=== PATIENT | female | born 1945 | race Caucasian/White ===

== ENCOUNTER 2016-08-08 09:49 | Outpatient (CLI) | payer MEDICARE, OTHER | END 2016-08-08 09:50 | disposition home or self-care (01) | DX: R92.1 Mammographic calcification found on diagnostic imaging of breast (principal) ==

== ENCOUNTER 2016-09-13 08:57 | Outpatient (CLI) | payer MEDICARE, OTHER | END 2016-09-13 08:58 | disposition home or self-care (01) | DX: I10 Essential (primary) hypertension (principal); E78.5 Hyperlipidemia, unspecified ==

== ENCOUNTER 2016-11-20 10:32 | Outpatient (CLI) | payer MEDICARE, OTHER ==
--- NOTE | 2016-11-20 12:51 | XRAY Report ---
THREE VIEW LEFT FINGER: 11/20/2016 CLINICAL INDICATION: Myxoid cyst. FINDINGS: AP, lateral, and oblique views of the left middle finger demonstrate no evidence of fractu re or dislocation. Mild osteoarthritic changes are present. No abnormal soft tissue calcification or ossification is appreciated. IMPRESSION: MILD OSTEOARTHRITIS. NO ABNORMAL SOFT TISSUE CALCIFICATION OR OSSIFICATION. JOB #: [id number] EXT JOB #:[id number]
== END 2016-11-20 10:33 | disposition home or self-care (01) ==
LOC: DI 10:32
PROVIDERS: ATTEND Physician Assistant Medical
DX: M19.042 Primary osteoarthritis, left hand (principal)
CPT/HCPCS: 73140

== ENCOUNTER 2017-02-23 10:30 | Outpatient (CLI) | payer MEDICARE, OTHER | END 2017-02-23 10:31 | disposition home or self-care (01) | LOC: LAB.WCP 10:30 | PROVIDERS: ATTEND Family Medicine | DX: R30.0 Dysuria (principal); G35 Multiple sclerosis | CPT/HCPCS: 87086 ==

== ENCOUNTER 2017-03-05 12:40 | Outpatient (CLI) | payer MEDICARE, OTHER ==
--- NOTE | 2017-03-06 12:54 | Mammography Report ---
DIGITAL UNILATERAL RIGHT MAMMOGRAM: 03/05/2017 HISTORY: Followup probably benign microcalcifications. Personal history of breast cancer status pos t left mastectomy. COMPARISON: 08/08/2016, 02/08/2016, 09/02/2015, 09/14/2014, and 04/26/2013. TECHNIQUE: Unilateral right CC, MLO, true lateral, and magnification views are obtained. FINDINGS: There are scattered fibroglandular densities. There is persistent stability of the right upper outer quadrant calcifications. No new calcifications, dominant mass, architectural distortion, or skin thickening is seen. IMPRESSION: PROBABLY BENIGN. BIRADS CATEGORY 3. SUGGEST FOLLOWUP RIGHT BREAST MAMMOGRAPHY IN [facility] TO INCLUDE MAGNIFICATION VIEWS. STANDARD QUALIFYING STATEMENTS 1. This examination was reviewed with the aid of Computer-Aided Detection (CAD). 2. A negative or benign imaging report should not delay biopsy if clinically suspicious findings are present. Consider surgical consultation if warranted. More than 5% of cancers are not identified by i maging. 3. Dense breasts may obscure an underlying neoplasm. JOB #: [id number] EXT JOB #:[id number]
== END 2017-03-05 12:41 | disposition home or self-care (01) ==
LOC: DI 12:40
PROVIDERS: ATTEND Physician Assistant Medical
DX: R92.8 Other abnormal and inconclusive findings on diagnostic imaging of breast (principal); Z08 Encounter for follow-up examination after completed treatment for malignant neoplasm; Z85.3 Personal history of malignant neoplasm of breast

== ENCOUNTER 2017-08-29 19:53 | Outpatient (CLI) | payer MEDICARE, OTHER ==
--- NOTE | 2017-08-30 10:33 | Ultrasound Report ---
PELVIS ULTRASOUND: 08/29/2017. COMPARISON: No comparison. INDICATION: Abnormal vaginal bleeding. TECHNIQUE: Sonographic evaluation of the pelvis was performed using transabdominal technique. FINDINGS: Uterus: 7.6 x 7.7 x 5.7 cm. Volume 174 mL. The uterus is very heterogeneous and difficult to evaluate. There appear to be multiple fibroids and calcifications scattered throughout the uterus. The largest fibroid is right fundal and measures 4.6 cm. Endometrial stripe appears to measure 7 mm, but is difficult to evaluate given the heterogeneous appearance of the uterus. No free fluid. The ovaries are not well evaluated. The right ovary measures 1.4 x 1.1 x 1.1 cm. The left ovary measures 1.7 x 1.4 cm. No adnexal masses. IMPRESSION: 1. HETEROGENEOUS LEIOMYOMATOUS UTERUS IS DIFFICULT TO EVALUATE. 2. THE ENDOMETRIAL COMPLEX MEASURES APPROXIMATELY 7 MM, BUT IS ALSO POORLY EVALUATED. IN THIS SETTING PELVIS MRI MAY HAVE A ROLE TO PLAY. OTHERWISE MAY CONSIDER AGRICULTURE LABORER CONSULTATION FOR CONSIDERATION OF COLPOSCOPY. TD: 08/30/2017 10:33 TERRY
== END 2017-08-29 19:54 | disposition home or self-care (01) ==
LOC: DI 19:53
PROVIDERS: ATTEND Family Medicine
DX: D25.9 Leiomyoma of uterus, unspecified (principal)
CPT/HCPCS: 76856

== ENCOUNTER 2017-09-21 09:51 | Outpatient (CLI) | payer MEDICARE, OTHER ==
--- NOTE | 2017-09-21 14:54 | MRI Report ---
EXAM: MR PELVIS CONTRAST (MR FEMALE PELVIS) EXAM DATE: 09/21/2017 11:13 AM. CLINICAL HISTORY: Leiomyoma of uterus. COMPARISON: None. TECHNIQUE: Multiplanar breath-hold T1, T2 and DWI sequences obtained through the pelvis on an MR scan ner. Images obtained without contrast. FINDINGS: Reproductive Organs: Uterus: The uterus is retroflexed and measures 7.8 x 5.6 x 4.3 cm with volume 99 cc. The endometrial thickness is distorted, measures 6.5 mm. Multiple myomas are present. Largest in the fundus is 5.4 x 4.3 cm transversely extending for 3.6 cm cephalocaudal extent. Right Ovary: The right ovary measures 1.9 x 2.2 x 1.5 cm with volume 3.3 cc. The right ovary appears normal. Left Ovary: The left ovary measures 1.4 x 1.0 x 1.5 cm with volume 1.1 cc. The left ovary appears nor mal. Bowel: The visualized portions of the small bowel, colon, and rectum appear normal. Bladder: The urinary bladder appears normal. Other: Moderate fatty atrophy of the musculature of the pelvis. IMPRESSION: 1. Retroflexed uterus shows numerous myomas, largest in the fundus. There is some distortion of the o therwise normal-appearing endometrial lining. Left and right ovaries are unremarkable. 2. No adenopathy or pelvic masses. [facility] Referring Provider Line: [phone] SITE ID: [id number]
== END 2017-09-21 09:52 | disposition home or self-care (01) ==
LOC: DI 09:51
PROVIDERS: ATTEND Obstetrics & Gynecology
DX: D25.9 Leiomyoma of uterus, unspecified (principal)
CPT/HCPCS: 72195

== ENCOUNTER 2017-10-01 13:17 | Outpatient (CLI) | payer MEDICARE, OTHER ==
--- NOTE | 2017-10-01 13:56 | Mammography Report ---
DIGITAL DIAGNOSTIC RIGHT MAMMOGRAM: 10/01/2017 CLINICAL INDICATION: Followup calcifications. TECHNIQUE: Right CC, MLO, true lateral, spot magnification views. COMPARISON: 03/05/2017, 08/08/2016, 02/08/2016, 09/02/2015, 09/14/2014, 04/26/2013, 03/18/2012, 02/28/2012, 08/05/2010. FINDINGS: The right breast again demonstrates scattered fibroglandular densities. The calcifications in question are stable on spot magnification views. Other coarse, typically benign calcifications are present. No suspicious masses, clustered microcalcifications, or regions of architectural distortion are identified. IMPRESSION: PROBABLE BENIGN CALCIFICATIONS. RECOMMENDATION: DIAGNOSTIC RIGHT MAMMOGRAM IN 6 MONTHS, TO ASSURE STABILITY. BIRADS CATEGORY 3-PROBABLE BENIGN FINDINGS. STANDARD QUALIFYING STATEMENTS: 1. This examination was reviewed with the aid of Computer-Aided Detection (CAD). 2. A negative or benign imaging report should not delay biopsy if clinically suspicious findings are present. Consider surgical consultation if warranted. More than 5% of cancers are not identified by imaging. 3. Dense breasts may obscure an underlying neoplasm. TD: 10/01/2017 13:55
== END 2017-10-01 13:18 | disposition home or self-care (01) ==
LOC: DI 13:17
PROVIDERS: ATTEND Physician Assistant Medical
DX: R92.1 Mammographic calcification found on diagnostic imaging of breast (principal)

== ENCOUNTER 2017-11-20 11:45 | Outpatient (CLI) | payer MEDICARE, OTHER ==
[2017-11-20 12:09] LABS: BILIRUBIN,URINE NEGATIVE (NEGATIVE); GLUCOSE, URINE (UA) NEGATIVE (NEGATIVE); KETONES,URINE (UA) NEGATIVE (NEGATIVE); LEUKOCYTE ESTERASE, URINE NEGATIVE (NEGATIVE); NITRITE,URINE NEGATIVE (NEGATIVE); OCCULT BLOOD,URINE NEGATIVE (NEGATIVE); PH,URINE 6.5 PH (5.0-7.5); PROTEIN,URINE NEGATIVE (NEGATIVE); UROBILINOGEN,URINE 0.2 (NORMAL) E.U./dL (NORMAL)
[2017-11-20 12:13] LABS: CLARITY,URINE CLEAR (CLEAR)
[2017-11-20 12:21] LABS: BASOPHILS % (AUTO) 0.7 %; EOSINOPHILS # (AUTO) 0.3 10^3/uL (0.0-0.7); EOSINOPHILS % (AUTO) 4.7 %; HGB - HEMOGLOBIN 13.2 g/dL (12.0-16.0); LYMPHOCYTES # (AUTO) 1.7 10^3/uL (1.5-3.5); LYMPHOCYTES % (AUTO) 27.8 %; MEAN CORPUSCULAR HGB CONC 34.1 g/dL (32.0-36.0); MEAN PLATELET VOLUME 6.8 fL (7.9-10.8); MONOCYTES # (AUTO) 0.4 10^3/uL (0.0-1.0); NEUTROPHILS # (AUTO) 3.7 10^3/uL (1.5-6.6); NEUTROPHILS % (AUTO) 59.8 %; PLT - PLATELET COUNT 240 10^3/uL (130-450); RED BLOOD COUNT 4.25 10^6/uL (4.20-5.40); RED CELL DISTRIBUTION WIDTH 12.9 % (12.0-15.0); WHITE BLOOD COUNT 6.3 x10^3/uL (4.8-10.8)
== END 2017-11-20 11:46 | disposition home or self-care (01) ==
LOC: LAB 11:45
PROVIDERS: ATTEND Obstetrics & Gynecology
DX: Z01.812 Encounter for preprocedural laboratory examination (principal); D25.9 Leiomyoma of uterus, unspecified; Z79.899 Other long term (current) drug therapy; N95.0 Postmenopausal bleeding
CPT/HCPCS: 36415; 81003; 85025; 86850; 86900; 86901

== ENCOUNTER 2017-11-21 06:13 | Day surgery (SDC) | payer MEDICARE, OTHER ==
[2017-11-21] MEDS ORDERED: LACTATED RINGERS 1,000 ML IV ONE (06:46)
[2017-11-21] MEDS ORDERED: SCOPOLAMINE PATCH TOP ONE (07:33)
[2017-11-21] MEDS ORDERED: ESTROGENS, CONJUGATED CREAM 30 GM TUBE ONE (08:37)
[2017-11-21] MEDS ORDERED: fentaNYL 100 MCG/2 ML VIAL IVP ONE (08:44)
[2017-11-21] MEDS ORDERED: ONDANSETRON 4 MG/2 ML VIAL IVP ONE (08:44)
[2017-11-21] MEDS ORDERED: DEXAMETHASONE 4 MG/ML VIAL IVP ONE (08:44)
[2017-11-21] MEDS ORDERED: PROPOFOL 200 MG/20 ML VIAL IVP ONE (08:44)
--- NOTE | 2017-11-21 08:44 | PREOP HISTORY & PHYSICAL ---
DATE OF SERVICE: 11/21/2017 Physician: Juice Alamo MD PREOPERATIVE H&P ON 11/20/2017 FOR PROPOSED DATE 11/21/2017 DIAGNOSES 1. Thickened endometrium. 2. Postmenopausal bleeding. 3. Nondiagnostic endometrial biopsy (office). 4. Prior tamoxifen patient. 5. Multiple sclerosis. 6. History of right leg fracture and plate installed. INTENDED PROCEDURE: Diagnostic hysteroscopy; possible MyoSure polypectomy or myomectomy; possible D and C. HISTORY OF PRESENT ILLNESS: Patient is a 72-year-old , 4, para 2-0-2-2 woman who has had a history of postmenopausal bleeding for 6 months and is known to have endometrial thickening with possible submucosal fibroids or polyps. Her endometrial biopsy produced only a scant sample which was benign, but nondiagnostic. She is a breast cancer (2007) survivor and received tamoxifen post surgery. PAST MEDICAL HISTORY 1. Patient has multiple sclerosis. 2. Fracture of the right leg with orthopedic surgery and placement of plate. 3. The patient has previously been diagnosed with a heart murmur. 4. Hypertension with antihypertensive. 5. Gastric reflux disease. 6. Cognitive and memory impairment. 7. Urolithiasis. 8. Overactive bladder. PAST SURGICAL HISTORY 1. Fusion of L2, 3, 4, and 5 in 2013. 2. Breast reduction in 2004. 3. Cholecystectomy in 2015. 4. Stone removal in 2009. 5. Shoulder surgery in 1987. 6. Left mastectomy in 2004. ALLERGIES: TORADOL RESULTS IN HALLUCINATIONS. MEDICATIONS 1. Atenolol 100 mg daily. 2. Mini dose aspirin 81 mg daily, last dose Sunday. 3. Hydrochlorothiazide 25 mg daily. 4. Multiple vitamin and iron daily. 5. Glucosamine chondroitin 1500 mg daily. 6. Sertraline 50 mg daily. 7. Nortriptyline 100 mg at bedtime. 8. Atorvastatin 20 mg at bedtime. 9. Lyrica 50 mg at bedtime. 10. Copaxone 40 mg injection 3 times a week. 11. VESIcare p.r.n. FAMILY HISTORY: CAD, father. Diabetes, paternal grandfather. SOCIAL HISTORY: , has never smoked, does not drink or take recreational drugs. No specific diet. Her is her primary vest busheler. REVIEW OF SYSTEMS CONSTITUTIONAL: No fever, recent illness. HEENT: Negative. CARDIOVASCULAR: Murmur reported, but no chest pain, palpitations, or irregular heartbeat. RESPIRATORY: Negative. GASTROINTESTINAL: Negative. GENITOURINARY: Negative other than postmenopausal bleeding and overactive bladder. MUSCULOSKELETAL: Muscle weakness secondary to MS. DERMATOLOGIC: Negative. BREASTS: No palpable lump on self-exam. NEUROLOGIC: Effects of MS. PSYCHOLOGIC: Cognitive defect. Pleasant mood otherwise. PHYSICAL EXAMINATION GENERAL: Well groomed, pleasant, accompanied by as a reliable historian. VITAL SIGNS: Posted. HEENT: Supple neck. No thyromegaly. LUNGS: Clear to auscultation. CARDIAC: Grade 2/6 systolic ejection murmur without diastolic component. BREASTS: Deferred. ABDOMEN: Truncal obesity. No hepatosplenomegaly. No tenderness detected. GENITOURINARY: From prior exam, no vulvar lesions. VAGINA: Cystorectocele. CERVIX: Patulous. UTERUS: Mobile, normal size. ADNEXA: No masses. MUSCULOSKELETAL: Weakness. No calf tenderness. NEUROLOGIC: MS-type changes. ASSESSMENT: Patient has endometrial thickening and history of postmenopausal bleeding without reliable tissue diagnosis at this time. Bleeding could be due to hyperplasia, malignancy, or fibroid/polyp. Diagnosis is required and a hysteroscopy provides the most reliable means. The risks and benefits of hysteroscopy versus other management strategies were discussed. ACOG handouts were reviewed. PLAN: Patient consents to hysteroscopy with MyoSure which may include MyoSure removal of polyps or myoma. D and C may be performed. Informed consent paperwork has been completed. Preoperative labs pending. TD: 11/20/2017 11:22
--- NOTE | 2017-11-21 08:52 | OPERATIVE REPORT ---
Operative Report - General Procedure Date: 11/21/17 Planned Procedure: Hysteroscopy with Myosure possible D&C Pre-Op Diagnosis: Postmenopausal bleeding, thickened endometrium Procedure Performed: Hysteroscopy with Myosure Polypectomy Post Op Diagnosis: Multiple polyps - Procedure Note Primary Surgeon: Juice Alamo MD Anesthesia Technique: General ET tube Pathology: Polyps IV Fluids (mL): 950 (Fluid deficit) Estimated Blood Loss (mL): 100 Urine Output (mL): 0 (Patient straight cath prior to procedure) Complications: None
[2017-11-21 10:15] VITALS: BP 127/66
--- NOTE | 2017-11-21 14:00 | OPERATIVE REPORT ---
DATE OF SERVICE: 11/21/2017 Physician: Juice Alamo MD PREOPERATIVE DIAGNOSES: Postmenopausal bleeding; thickened endometrium on ultrasound (11 mm). POSTOPERATIVE DIAGNOSES: Multiple intrauterine benign-appearing polyp; no evidence of malignancy or hyperplasia. PROCEDURES PERFORMED: Hysteroscopy; excision of multiple polyps with MyoSure. SURGEON: Juice Alamo M.D., FACOG ANESTHESIOLOGIST: Smith Hess, Certified Nurse [employer] Registered Nurse ANESTHESIA: General, ET tube placed. PATHOLOGY: Polypoid growths sent. FLUIDS: Fluid deficit at 950. ESTIMATED BLOOD LOSS: 100 mL URINE OUTPUT: Not known. The patient straight catheterized prior to procedure. DRAINS: None. COMPLICATIONS: None. FINDINGS: The uterus is retroverted and slightly bulky indicative of intramural fibroids. There were no palpable adnexal masses. Hysteroscopy reveals multiple polypoid growths, all appearing benign. There was a patch of speckled myometrium that was most likely atrophic, which was also sampled. Endometrium overall appeared atrophic. There was one small ramakrishna left in the dome of the uterus that was from Hegar probe cervical dilation. TECHNIQUE: The patient was brought to the operating room and placed in supine position for administration of general anesthesia. She was uneventfully induced and intubated. She was moved in the dorsal lithotomy position on [facility] stirrups. She was prepped and draped in a customary sterile fashion. She was straight catheterized prior to the procedure. Exam under anesthesia was done. A timeout briefing was done per protocol. Clamshell speculum was inserted and the cervix visualized. A single-tooth tenaculum was placed on the anterior cervical length. The cervix was then gently dilated with serial application of Hegar probes to size 6. A hysteroscope was primed and camera white balanced. The hysteroscope then was introduced through the endocervical canal and into the uterine cavity. There were multiple polyps noted and photographed. Next, MyoSure was introduced into the endometrial cavity, and in a systematic fashion, the polyps were removed. The uterus was depressurized and there were some ooze noted. The uterus was then packed with iodoform gauze. We observed the gauze packing for 3 minutes to ensure that it was effective. Anesthesia was then reversed, the patient was awakened, and taken to the recovery room. She was given complete postop instructions and warning and callback instructions as well. DISCHARGE MEDICATIONS: Motrin 600 q. 6 hours. The patient will return to clinic for followup on pathology in 2 weeks. TD: 11/21/2017 09:11 TERRY
== END 2017-11-21 06:14 | disposition home or self-care (01) ==
LOC: SDS 06:13
PROVIDERS: ATTEND Obstetrics & Gynecology
PROC: 0UB98ZX Excision of Uterus, Via Natural or Artificial Opening Endoscopic, Diagnostic (ICD-10-PCS; principal; 2017-11-21 07:30)
DX: N84.0 Polyp of corpus uteri (principal); N95.0 Postmenopausal bleeding; I10 Essential (primary) hypertension; Z85.3 Personal history of malignant neoplasm of breast; G35 Multiple sclerosis; Z79.82 Long term (current) use of aspirin; K21.9 Gastro-esophageal reflux disease without esophagitis
CPT/HCPCS: 58558; J3490; J7120; 88305

== ENCOUNTER 2017-12-25 14:30 | Outpatient (CLI) | payer MEDICARE, OTHER ==
[2017-12-25 14:46] LABS: BASOPHILS % (AUTO) 0.3 %; EOSINOPHILS # (AUTO) 0.3 10^3/uL (0.0-0.7); EOSINOPHILS % (AUTO) 2.9 %; HGB - HEMOGLOBIN 13.3 g/dL (12.0-16.0); LYMPHOCYTES # (AUTO) 1.8 10^3/uL (1.5-3.5); LYMPHOCYTES % (AUTO) 19.3 %; MEAN CORPUSCULAR HEMOGLOBIN 31.3 pg (27.0-31.0); MEAN CORPUSCULAR HGB CONC 33.3 g/dL (32.0-36.0); MEAN CORPUSCULAR VOLUME 94.1 fL (81.0-99.0); MEAN PLATELET VOLUME 6.7 fL (7.9-10.8); MONOCYTES # (AUTO) 0.6 10^3/uL (0.0-1.0); MONOCYTES % (AUTO) 6.2 %; NEUTROPHILS # (AUTO) 6.6 10^3/uL (1.5-6.6); NEUTROPHILS % (AUTO) 71.3 %; PLT - PLATELET COUNT 248 10^3/uL (130-450); RED BLOOD COUNT 4.24 10^6/uL (4.20-5.40); RED CELL DISTRIBUTION WIDTH 13.1 % (12.0-15.0); WHITE BLOOD COUNT 9.2 x10^3/uL (4.8-10.8)
== END 2017-12-25 14:31 | disposition home or self-care (01) ==
LOC: LAB 14:30
PROVIDERS: ATTEND Obstetrics & Gynecology
DX: N93.8 Other specified abnormal uterine and vaginal bleeding (principal)
CPT/HCPCS: 36415; 85025

== ENCOUNTER 2018-04-08 08:00 | Outpatient (CLI) | payer MEDICARE, OTHER ==
[2018-04-09 15:42] LABS: BILIRUBIN,URINE NEGATIVE (NEGATIVE); GLUCOSE, URINE (UA) NEGATIVE (NEGATIVE); KETONES,URINE (UA) NEGATIVE (NEGATIVE); LEUKOCYTE ESTERASE, URINE NEGATIVE (NEGATIVE); NITRITE,URINE NEGATIVE (NEGATIVE); OCCULT BLOOD,URINE NEGATIVE (NEGATIVE); PH,URINE 5.5 PH (5.0-7.5); PROTEIN,URINE NEGATIVE (NEGATIVE); UROBILINOGEN,URINE 0.2 (NORMAL) E.U./dL (NORMAL)
[2018-04-09 15:56] LABS: BACTERIA,URINE None Seen /HPF (None Seen); CLARITY,URINE CLEAR (CLEAR); RBC,URINE None Seen /HPF (0-5); SQUAMOUS EPITHELIAL CELL,UR RARE Squamous (<= Few)
== END 2018-04-08 23:59 ==
LOC: LAB.R 08:00
PROVIDERS: ATTEND Obstetrics & Gynecology
DX: N39.3 Stress incontinence (female) (male) (principal)
CPT/HCPCS: 81001; 87086

== ENCOUNTER 2018-04-09 09:54 | Outpatient (CLI) | payer MEDICARE, OTHER ==
--- NOTE | 2018-04-09 11:56 | Mammography Report ---
Reason: ABNORMAL MAMMO, RIGHT BREAST Procedure Date: 04/09/2018 Accession Number: [id number] / [id number] Procedure: ANA - Diagnostic Dig RT CPT Code: FULL RESULT: EXAM: Diagnostic Dig RT DATE: 04/09/2018 10:55 AM CLINICAL HISTORY: Follow-up microcalcifications. TECHNIQUE: Magnification and true lateral views right breast COMPARISON: 10/01/2017, 03/05/2017, 08/08/2016, 02/08/2016, 09/02/2015, 09/14/2014, and 04/26/2013 FINDINGS: Scattered fibroglandular densities are present in the right breast. Stable anterior calcifications are again seen. IMPRESSION: Benign findings RECOMMENDATION: Return to routine screening in 6 months. BIRADS CATEGORY 2: Benign findings STANDARD QUALIFYING STATEMENTS: 1. This examination was reviewed with the aid of Computer-Aided Detection (CAD). 2. A negative or benign imaging report should not delay biopsy if clinically suspicious findings are present. Consider surgical consultation if warrented. More than 5% of cancers are not identified by imaging. 3. Dense breasts may obscure an underlying neoplasm.
== END 2018-04-09 09:55 | disposition home or self-care (01) ==
LOC: DI 09:54
PROVIDERS: ATTEND Family Medicine
DX: R92.8 Other abnormal and inconclusive findings on diagnostic imaging of breast (principal)

== ENCOUNTER 2018-05-16 12:07 | Outpatient (CLI) | payer MEDICARE, OTHER ==
[2018-05-16] MEDS ORDERED: GADOBUTROL 10 MMOL/10 ML VIAL ONE (12:14)
[2018-05-16] MEDS ORDERED: GADOBUTROL 10 MMOL/10 ML VIAL IVP ONE (12:51)
--- NOTE | 2018-05-16 15:36 | MRI Report ---
Reason: MULTIPLE SCLEROSIS Procedure Date: 05/16/2018 Accession Number: [id number] / [id number] Procedure: MRI - Brain W/WO CPT Code: FULL RESULT: EXAM: MRI BRAIN WITHOUT AND WITH CONTRAST EXAM DATE: 05/16/2018 01:23 PM. CLINICAL HISTORY: MULTIPLE SCLEROSIS. COMPARISON: BRAIN 11/19/2007 8:05 AM. TECHNIQUE: BRAIN: Multiplanar, multisequence MRI of the brain was performed without and with intravenous contrast using a 3T MR scanner. IV Contrast: 8.8 cc Gadavist FINDINGS: BRAIN: Parenchyma: Multiple, semi-confluent foci of FLAIR hyperintensity are again seen within periventricular, deep, subcortical and juxtacortical white matter, many with corresponding T1 hypointensity , compatible with demyelinating plaques. Compared to prior study from 11/19/2007, no convincing evidence of new lesions given slight differences in technique and angulation. No abnormal enhancement to suggest active inflammation/demyelination. No evidence of restricted diffusion to suggest acute infarct. Pituitary: Unremarkable. Ventricles and Extra-axial Spaces: Ventricles are symmetric and normal in size. Extra-axial spaces are unremarkable. Orbits and Sinuses: Orbits are unremarkable. Paranasal sinuses and mastoid air cells are clear. Major Vascular Flow Voids: Intact. Dural Venous Sinuses and Major Central Veins: Patent on post-contrast images. IMPRESSION: 1. Multiple, semi-confluent foci of FLAIR hyperintensity are again seen within periventricular, deep, subcortical and juxtacortical white matter, many with corresponding T1 hypointensity , compatible with demyelinating plaques. Compared to prior study from 11/19/2007, no convincing evidence of new lesions given slight differences in technique and angulation. No abnormal enhancement to suggest active inflammation/demyelination. 2. Qualitatively normal brain volume. [facility]
== END 2018-05-16 12:08 | disposition home or self-care (01) ==
LOC: DI 12:07
PROVIDERS: ATTEND Psychiatry & Neurology Neurology
DX: G35 Multiple sclerosis (principal)
CPT/HCPCS: 70553; A9585

== ENCOUNTER 2018-07-16 08:15 | Outpatient (CLI) | payer MEDICARE, OTHER ==
[2018-07-16 09:23] LABS: BASOPHILS % (AUTO) 0.4 %; EOSINOPHILS # (AUTO) 0.1 10^3/uL (0.0-0.7); HGB - HEMOGLOBIN 13.3 g/dL (12.0-16.0); LYMPHOCYTES # (AUTO) 1.8 10^3/uL (1.5-3.5); LYMPHOCYTES % (AUTO) 30.6 %; MEAN CORPUSCULAR HEMOGLOBIN 31.5 pg (27.0-31.0); MEAN CORPUSCULAR HGB CONC 34.3 g/dL (32.0-36.0); MEAN CORPUSCULAR VOLUME 91.8 fL (81.0-99.0); MONOCYTES # (AUTO) 0.4 10^3/uL (0.0-1.0); MONOCYTES % (AUTO) 6.8 %; NEUTROPHILS # (AUTO) 3.6 10^3/uL (1.5-6.6); NEUTROPHILS % (AUTO) 60.2 %; PLT - PLATELET COUNT 235 10^3/uL (130-450); RED BLOOD COUNT 4.23 10^6/uL (4.20-5.40); RED CELL DISTRIBUTION WIDTH 12.7 % (12.0-15.0)
[2018-07-16 09:46] LABS: ALBUMIN 4.1 g/dL (3.2-5.5); ALBUMIN/GLOBULIN RATIO 1.4 (1.0-2.2); ALKALINE PHOSPHATASE 87 IU/L (42-121); ALT ALANINE AMINOTRANSFERASE 13 IU/L (10-60); AST ASPARTATE AMINOTRANSFERASE 21 IU/L (10-42); BILIRUBIN,TOTAL 0.4 mg/dL (0.2-1.0); BUN - BLOOD UREA NITROGEN 16 mg/dL (6-20); CARBON DIOXIDE - CO2 27 mmol/L (21-32); CHLORIDE 105 mmol/L (101-111); CHOL/HDL RATIO 2.5 (<4.4); CHOLESTEROL 170 mg/dL; CREATININE 0.8 mg/dL (0.4-1.0); GFR - MDRD 70 (>89); GLUCOSE 110 mg/dL (70-100); HDL CHOLESTEROL 68 mg/dL; LDL CHOLESTEROL,CALCULATED 83 mg/dL; LDL/HDL RATIO 1.2 (<4.4); SODIUM 140 mmol/L (135-145); TOTAL PROTEIN 7.1 g/dL (6.7-8.2); VLDL CHOLESTEROL 19 mg/dL
== END 2018-07-16 08:16 | disposition home or self-care (01) ==
LOC: LAB 08:15
PROVIDERS: ATTEND Obstetrics & Gynecology
DX: N93.9 Abnormal uterine and vaginal bleeding, unspecified (principal); E78.5 Hyperlipidemia, unspecified; I10 Essential (primary) hypertension; G31.84 Mild cognitive impairment of uncertain or unknown etiology
CPT/HCPCS: 36415; 80053; 80061; 83721; 84443; 85025

== ENCOUNTER 2018-07-19 14:59 | Outpatient (CLI) | payer MEDICARE, OTHER ==
--- NOTE | 2018-07-20 01:00 | Ultrasound Report ---
Reason: ABNORMAL VAGINAL BLEEDING Procedure Date: 07/19/2018 Accession Number: [id number] / [id number] Procedure: US - Pelvic w/Transvaginal CPT Code: FULL RESULT: EXAM: PELVIC ULTRASOUND EXAM DATE: 07/19/2018 03:30 PM. CLINICAL HISTORY: ABNORMAL VAGINAL BLEEDING. COMPARISON: PELVIS GENERAL (NO TV/NO DOP) 08/29/2017 9:28 PM. TECHNIQUE: Realtime transabdominal pelvic scan performed to identify the uterus and adnexa and as an overview of other pelvic structures, followed by transvaginal scan to provide greater detail of the uterus and adnexa, with static image documentation. FINDINGS: Uterus: 9.8 x 6.3 x 4.1 cm, volume 132 cc. Retroverted position. Diffusely heterogeneous echotexture of the myometrium. Masses: Leiomyomas, in the body measuring 4.9 x 5.3 x 3.7, and in the lower uterine segment measuring 2.2 x 2.1 x 1.8. Endometrium: 3 mm. Normal. Cervix: Unremarkable. Right Ovary: 2.0 x 1.4 x 1.3 cm, volume 2 cc. 6 mm cyst. Left Ovary: 1.7 x 1.2 x 1.1 cm, volume 1 cc. Normal echotexture and blood flow. Free Fluid: None. Other: None. IMPRESSION: Diffusely leiomyomatous uterus. No evidence of endometrial hyperplasia. 6 mm right ovarian cyst. [facility]
== END 2018-07-19 15:00 | disposition home or self-care (01) ==
LOC: DI 14:59
PROVIDERS: ATTEND Obstetrics & Gynecology
DX: D25.9 Leiomyoma of uterus, unspecified (principal); N83.201 Unspecified ovarian cyst, right side
CPT/HCPCS: 76830; 76856

== ENCOUNTER 2018-08-02 11:07 | Outpatient (CLI) | payer MEDICARE, OTHER ==
--- NOTE | 2018-08-02 12:23 | XRAY Report ---
Reason: KNEE PX.BILATERAL/ANKLE PX LEFT Procedure Date: 08/02/2018 Accession Number: [id number] / [id number] Procedure: WCP - Ankle 3 View LT CPT Code: FULL RESULT: EXAM: LEFT ANKLE RADIOGRAPHY EXAM DATE: 08/02/2018 11:35 AM. CLINICAL HISTORY: KNEE PX. ANKLE PX LEFT. COMPARISON: 03/18/2014, 06/09/2013 and 04/26/2013 TECHNIQUE: 3 views. FINDINGS: Bones: Status post ORIF distal left fibula and medial malleolus. No evidence of hardware failure or loosening. Osseous bridging between the distal fibula and tibia similar to previous. Joints: No effusion. No subluxations. The ankle mortise is normally aligned. Soft Tissues: No soft tissue swelling. IMPRESSION: Stable postoperative left ankle compared with prior studies. No superimposed acute findings. [facility]
--- NOTE | 2018-08-03 10:44 | XRAY Report ---
Reason: KNEE PX.BILATERAL/ANKLE PX LEFT Procedure Date: 08/02/2018 Accession Number: [id number] / [id number] Procedure: WCP - Knee 3 View BILAT CPT Code: FULL RESULT: EXAM: BILATERAL KNEE RADIOGRAPHY EXAM DATE: 08/02/2018 11:35 AM. CLINICAL HISTORY: Bilateral knee pain. COMPARISON: None. TECHNIQUE: 3 views each knee. FINDINGS: Right: Bones: Normal. No fractures or bone lesions. Joints: No subluxation or dislocation. There is a trace knee joint effusion. There is mild narrowing of the medial and patellofemoral compartment spaces. There is mild tricompartmental osteophyte formation. Soft Tissues: Normal. No soft tissue swelling. Left: Bones: Normal. No fractures or bone lesions. Joints: No subluxation or dislocation. There is a trace knee joint effusion. There is mild joint space narrowing at the medial compartment, lateral compartment and patellofemoral compartment. There is moderate marginal osteophyte formation at the lateral compartment and mild marginal osteophyte formation at the medial and patellofemoral compartments. Soft Tissues: Normal. No soft tissue swelling. IMPRESSION: 1. No acute osseous abnormality of the bilateral knees. 2. Trace bilateral knee joint effusions. 3. 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 Right: Kellgren Lso Grade 2. Left: Kellgren Los Grade 2. Kellgren and Los classification of osteoarthritis: Grade 0: no radiographic features of osteoarthritis are present Grade 1: doubtful joint space narrowing (JSN) and possible osteophytic lipping Grade 2: definite osteophytes and possible JSN on anteroposterior weight-bearing radiograph Grade 3: multiple osteophytes, definite JSN, sclerosis, possible bony deformity Grade 4: large osteophytes, marked JSN, severe sclerosis and definite bony deformity [facility]
== END 2018-08-02 11:08 | disposition home or self-care (01) ==
LOC: DI.WCP 11:07
PROVIDERS: ATTEND Family Medicine
DX: M25.462 Effusion, left knee (principal); M25.461 Effusion, right knee; M17.0 Bilateral primary osteoarthritis of knee; M25.572 Pain in left ankle and joints of left foot

== ENCOUNTER 2018-08-19 13:01 | Outpatient (CLI) | payer MEDICARE, OTHER ==
--- NOTE | 2018-08-23 15:37 | Ultrasound Report ---
Reason: MASS OF LEFT ANKLE JOINT, ANKLE PAIN, LEFT Procedure Date: 08/19/2018 Accession Number: [id number] / [id number] Procedure: US - Ext Limited Non Vascular CPT Code: FULL RESULT: EXAM: LEFT LOWER EXTREMITY ULTRASOUND - LIMITED EXAM DATE: 08/19/2018 01:52 PM. CLINICAL HISTORY: Mass of left ankle joint, ankle pain, left. COMPARISON: ANKLE 3 VIEW LT 08/02/2018 11:20 AM. TECHNIQUE: Real-time scanning was performed with static images obtained. FINDINGS: Real-time focused ultrasound examination was performed by the radiologist. The palpable lump as identified by the patient and confirmed by the radiologist overlies the lateral plate and screw hardware of the distal fibula with the thickening itself identified within the musculotendinous junction of the peroneus. Dynamic examination demonstrates rubbing of the musculotendinous region against the plate and screw construct. No suspicious mass or collection is identified. 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 Recommend orthopedic consultation. [facility]
== END 2018-08-19 13:02 | disposition home or self-care (01) ==
LOC: DI 13:01
PROVIDERS: ATTEND Family Medicine
DX: M25.572 Pain in left ankle and joints of left foot (principal); M62.9 Disorder of muscle, unspecified
CPT/HCPCS: 76882

== ENCOUNTER 2019-02-24 14:20 | Outpatient (CLI) | payer MEDICARE, OTHER ==
[2019-02-24] MEDS ORDERED: IOVERSOL 320 100 ML VIAL IVP ONE ×2 (14:46→16:37)
[2019-02-24] MEDS ORDERED: IOVERSOL 320 50 ML VIAL ONE (14:46)
[2019-02-24 16:03] LABS: BASOPHILS % (AUTO) 0.3 %; EOSINOPHILS # (AUTO) 0.1 10^3/uL (0.0-0.7); EOSINOPHILS % (AUTO) 1.4 %; HGB - HEMOGLOBIN 12.4 g/dL (12.0-16.0); LYMPHOCYTES % (AUTO) 28.6 %; MEAN CORPUSCULAR HEMOGLOBIN 30.4 pg (27.0-31.0); MEAN CORPUSCULAR VOLUME 95.1 fL (81.0-99.0); MONOCYTES # (AUTO) 0.6 10^3/uL (0.0-1.0); MONOCYTES % (AUTO) 8.6 %; NEUTROPHILS # (AUTO) 4.3 10^3/uL (1.5-6.6); NEUTROPHILS % (AUTO) 60.8 %; PLT - PLATELET COUNT 225 10^3/uL (130-450); RED BLOOD COUNT 4.08 10^6/uL (4.20-5.40); RED CELL DISTRIBUTION WIDTH 12.3 % (12.0-15.0); WHITE BLOOD COUNT 7.1 x10^3/uL (4.8-10.8)
[2019-02-24 16:14] LABS: ALBUMIN 4.3 g/dL (3.2-5.5); ALBUMIN/GLOBULIN RATIO 1.4 (1.0-2.2); BILIRUBIN,TOTAL 0.3 mg/dL (0.2-1.0); CALCIUM 10.1 mg/dL (8.5-10.3); CREATININE 0.6 mg/dL (0.4-1.0); TOTAL PROTEIN 7.3 g/dL (6.7-8.2)
[2019-02-24] MEDS ORDERED: IOVERSOL 320 50 ML VIAL PO ONE (16:37)
--- NOTE | 2019-02-24 17:40 | CT Report ---
Reason: ABDOMINAL PAIN,RLQ Procedure Date: 02/24/2019 Accession Number: [id number] / [id number] Procedure: CT - Abdomen/Pelvis W CPT Code: FULL RESULT: EXAM: CT ABDOMEN AND PELVIS EXAM DATE: 02/24/2019 04:34 PM. CLINICAL HISTORY: ABDOMINAL PAIN,RLQ. COMPARISONS: ABD/PEL 10/15/2009 9:59 AM. TECHNIQUE: Routine helical CT imaging was performed through the abdomen and pelvis. IV contrast: OPTI 320 100ML. Enteric contrast: Yes. Reconstructions: Coronal and sagittal. In accordance with CT protocol optimization, one or more of the following dose reduction techniques were utilized for this exam: automated exposure control, adjustment of mA and/or KV based on patient size, or use of iterative reconstructive technique. FINDINGS: Lung Bases: There is a 6 mm left lower lobe lung nodule which was not included on the previous exam. Liver: Normal. No masses. Gallbladder/Bile Ducts: Gallbladder is surgically absent. Spleen: Normal. Pancreas: Normal. Adrenal Glands: There is a left adrenal nodule measuring 12 mm in diameter which is unchanged. Right adrenal gland appears normal. Kidneys: Normal. No masses or hydronephrosis. Peritoneal Cavity/Bowel: There is oral contrast throughout the small bowel. Contrast is seen to the distal rectum. No dilated bowel loops or transition zone. No free fluid or free air. There are findings of upper abdominal surgery with multiple surgical clips in the gastrohepatic space. The appendix is well visualized and normal. Pelvic Organs: Urinary bladder is unremarkable. There are multiple uterine calcifications. There is a dominant uterine mass measuring 54 mm in diameter consistent with a fibroid. Urinary bladder is unremarkable. Vasculature: The abdominal aorta is normal in caliber. Bones: There are findings of laminectomy and posterior spinal fusion from L2-L5. No acute fracture. Other: None. IMPRESSION: 1. No significant acute abnormality in the right lower quadrant to explain clinical symptoms. 2. Multiple uterine fibroids. 3. Incidental 6 mm left lower lobe lung nodule. Indeterminate chronicity. Fleischner Society guidelines would recommend no follow-up for a clinically low risk patient or optional twelve-month follow-up in a clinically high risk patient. [facility] The call report notification system was initiated by Dr. Yogi Carroll at 05:38 PM on 02/24/2019.
== END 2019-02-24 14:21 | disposition home or self-care (01) ==
LOC: DI 14:20
PROVIDERS: ATTEND Family Medicine
DX: R10.31 Right lower quadrant pain (principal); D25.9 Leiomyoma of uterus, unspecified
CPT/HCPCS: 36415; 74177; 80053; 85025; Q9967

== ENCOUNTER 2019-04-08 07:39 | Outpatient (CLI) | payer MEDICARE, OTHER | END 2019-04-08 07:40 | disposition home or self-care (01) | LOC: DI 07:39 | PROVIDERS: ATTEND Family Medicine | DX: I49.9 Cardiac arrhythmia, unspecified (principal) | CPT/HCPCS: 93306 ==

== ENCOUNTER 2019-05-12 09:56 | Outpatient (CLI) | payer MEDICARE, OTHER ==
--- NOTE | 2019-05-12 16:52 | XRAY Report ---
Reason: COUGH Procedure Date: 05/12/2019 Accession Number: [id number] / [id number] Procedure: WCP - Chest 2 View X-Ray CPT Code: 03422 Final Report FULL RESULT: EXAM: CHEST RADIOGRAPHY EXAM DATE: 05/12/2019 09:56 AM. CLINICAL HISTORY: COUGH. COMPARISON: None. TECHNIQUE: 2 views. FINDINGS: Lungs/Pleura: No focal opacities evident. No pleural effusion. No pneumothorax. Normal volumes. Mediastinum: Normal heart size. Scant atherosclerotic house occasions affiliated with the aortic arch. Tortuous distal thoracic aorta. Other: Mild degenerative changes in the thoracic spine. IMPRESSION: No acute process. [facility]
== END 2019-05-12 23:59 | disposition home or self-care (01) ==
LOC: DI.WCP 09:56
PROVIDERS: ATTEND Family Medicine
DX: R05 Cough (principal)
CPT/HCPCS: 71046

== ENCOUNTER 2019-10-27 10:00 | Outpatient (CLI) | payer MEDICARE, OTHER ==
--- NOTE | 2019-10-28 02:22 | XRAY Report ---
Reason: PAIN IN RIGHT FOOT Procedure Date: 10/27/2019 Accession Number: [id number] / [id number] Procedure: XR - Foot 3 View RT CPT Code: Final Report FULL RESULT: EXAM: RIGHT FOOT RADIOGRAPHY EXAM DATE: 10/27/2019 10:16 AM. CLINICAL HISTORY: PAIN IN RIGHT FOOT. COMPARISON: None. TECHNIQUE: 3 views. FINDINGS: Bones: No acute fracture seen. Joints: No dislocation seen. Joint spaces are relatively well-preserved. Soft Tissues: Mild soft tissue swelling. IMPRESSION: 1. No acute fracture or dislocation seen. [facility]
== END 2019-10-27 10:01 | disposition home or self-care (01) ==
LOC: DI 10:00
PROVIDERS: ATTEND Podiatrist
DX: M79.671 Pain in right foot (principal)

== ENCOUNTER 2020-01-06 07:00 | Outpatient (CLI) | payer MEDICARE, OTHER | END 2020-01-06 23:59 | disposition home or self-care (01) | LOC: LAB.R 07:00 | PROVIDERS: ATTEND Family Medicine | DX: R39.15 Urgency of urination (principal) | CPT/HCPCS: 87086 ==

== ENCOUNTER 2020-01-23 08:00 | Outpatient (CLI) | payer MEDICARE, OTHER ==
[2020-01-23 18:28] LABS: BASOPHILS % (AUTO) 0.3 %; EOSINOPHILS # (AUTO) 0.1 10^3/uL (0.0-0.7); EOSINOPHILS % (AUTO) 1.2 %; HGB - HEMOGLOBIN 12.5 g/dL (12.0-16.0); LYMPHOCYTES # (AUTO) 1.9 10^3/uL (1.5-3.5); LYMPHOCYTES % (AUTO) 29.9 %; MEAN CORPUSCULAR HEMOGLOBIN 30.6 pg (27.0-31.0); MEAN CORPUSCULAR HGB CONC 32.1 g/dL (32.0-36.0); MEAN CORPUSCULAR VOLUME 95.1 fL (81.0-99.0); MEAN PLATELET VOLUME 9.4 fL (7.9-10.8); MONOCYTES # (AUTO) 0.5 10^3/uL (0.0-1.0); MONOCYTES % (AUTO) 7.1 %; NEUTROPHILS % (AUTO) 61.2 %; PLT - PLATELET COUNT 243 10^3/uL (130-450); RED BLOOD COUNT 4.09 10^6/uL (4.20-5.40); RED CELL DISTRIBUTION WIDTH 12.4 % (12.0-15.0); WHITE BLOOD COUNT 6.5 x10^3/uL (4.8-10.8)
[2020-01-23 18:57] LABS: ALBUMIN 4.5 g/dL (3.2-5.5); ALBUMIN/GLOBULIN RATIO 1.6 (1.0-2.2); ALKALINE PHOSPHATASE 81 IU/L (42-121); ALT ALANINE AMINOTRANSFERASE 14 IU/L (10-60); AST ASPARTATE AMINOTRANSFERASE 23 IU/L (10-42); BILIRUBIN,TOTAL 0.4 mg/dL (0.2-1.0); BUN - BLOOD UREA NITROGEN 21 mg/dL (6-20); CALCIUM 10.1 mg/dL (8.5-10.3); CARBON DIOXIDE - CO2 27 mmol/L (21-32); CHLORIDE 103 mmol/L (101-111); CREATININE 0.9 mg/dL (0.4-1.0); GLUCOSE 109 mg/dL (70-100); SODIUM 138 mmol/L (135-145); TOTAL PROTEIN 7.3 g/dL (6.7-8.2)
[2020-01-23 19:42] LABS: CRP - C-REACTIVE PROTEIN < 1.0 mg/dL (0-1.0)
== END 2020-01-23 23:59 | disposition home or self-care (01) ==
LOC: LAB.WCP 08:00
PROVIDERS: ATTEND Family Medicine
DX: R61 Generalized hyperhidrosis (principal)
CPT/HCPCS: 36415; 80053; 83615; 84443; 85025; 86140; 87389

== ENCOUNTER 2020-02-16 08:20 | Outpatient (CLI) | payer MEDICARE, OTHER ==
[2020-02-16] MEDS ORDERED: IOVERSOL 320 100 ML VIAL IVP ONE ×2 (08:32→09:54)
[2020-02-16] MEDS ORDERED: IOVERSOL 320 50 ML VIAL ONE (08:32)
[2020-02-16] MEDS ORDERED: IOVERSOL 320 50 ML VIAL PO ONE (09:54)
--- NOTE | 2020-02-16 11:03 | CT Report ---
PROCEDURE: Abdomen/Pelvis W INDICATIONS: NIGHT SWEATS,NEOPLASM,MALIGNANT,BREAST CONTRAST: IV CONTRAST: Optiray 320 ml: 100 PO CONTRAST: Optiray 320 ml50 TECHNIQUE: After the administration of contrast, 5 mm thick sections acquired from the diaphragms to the sym physis. 5 mm thick coronal and sagittal reformats were acquired. For radiation dose reduction, the following was used: automated exposure control, adjustment of mA and/or kV according to patient size . COMPARISON: Prior CT 02/24/2019 abdomen and pelvis.. FINDINGS: Image quality: Excellent. ABDOMEN: Lung bases: Lung bases are clear. Heart size is normal. Solid organs: Liver and spleen are normal in size and enhancement. Gallbladder has been previously resected Biliary system is non dilated. Pancreas enhances normally. No adrenal nodules. Kidneys d emonstrate normal size and enhancement, without hydronephrosis. Peritoneum and bowel: Bowel loops demonstrate normal wall thickness and caliber. No free fluid or a ir. Nodes and vessels: No retroperitoneal or mesenteric adenopathy by size criteria. Aorta and inferior vena cava are normal in size. Miscellaneous: No ventral hernias. PELVIS: Genitourinary: Bladder wall thickness is normal. Note is made of scattered moderate and moderately l arge uterine fibroids. Several of these are calcified, the largest is noted at the lower uterine segm ent measuring approximately 4.7 cm. Miscellaneous: No inguinal hernias or adenopathy. Prior spine fusion surgery in the lumbosacral marcela on, producing metal artifact mildly degrading quality of visualization over this area. Bones: No suspicious bony lesions. No vertebral body compression fractures. IMPRESSION: No evidence of metastatic disease. Prior cholecystectomy. Multiple uterine fibroids some of which are partially calcified. A definite source of reported night sweats is not identified. Reviewed by: Yogi Chauhan MD on 02/16/2020 11:02 AM PDT Approved by: Yogi Chauhan MD on 02/16/2020 11:02 AM PDT Station ID: [id number]
--- NOTE | 2020-02-16 14:14 | CT Report ---
PROCEDURE: CHEST W INDICATIONS: NIGHT SWEATS,NEOPLASM,MALIGNANT,BREAST CONTRAST: IV CONTRAST: Optiray 320 ml: 100 PO CONTRAST: Optiray 320 ml50 TECHNIQUE: After the administration of intravenous contrast, 5 mm thick sections acquired from the pulmonary api blanca to the posterior costophrenic angles. 7 mm thick coronal MIP reformats were acquired. For radia tion dose reduction, the following was used: automated exposure control, adjustment of mA and/or kV according to patient size. COMPARISON: None. FINDINGS: Image quality: Excellent. Lungs and pleura: No acute air space opacities. No pleural effusions or pneumothorax. Central and peripheral airways are patent and normal in caliber. Mediastinum: Heart size is normal. No pericardial effusion. No mediastinal or hilar adenopathy by size criteria. Thoracic aorta and central pulmonary arteries are normal in size. Esophagus is artem l in caliber. No hiatal hernia. Bones and chest wall: No suspicious bony lesions. No vertebral body compression fractures. No axil alexsander or supraclavicular adenopathy by size criteria. Thyroid gland contains an asymmetric nodule bobby suring up to 2.4 x 2.7 cm at and to the left of midline, without adjacent adenopathy. Note is made of prior left mastectomy.. Abdomen: Visualized upper abdominal solid organs appear normal. Upper abdominal bowel loops are nor mal in caliber. IMPRESSION: Prior left mastectomy, moderately large thyroid mass at and to the left of midline measuring up to 2. 7 cm. Thyroid ultrasound is recommended for more accurate characterization. A thyroid solid nodule of this size may result in need for thyroid biopsy. No adenopathy or distant metastatic disease is found. Reviewed by: Yogi Chauhan MD on 02/16/2020 2:13 PM PDT Approved by: Yogi Chauhan MD on 02/16/2020 2:13 PM PDT Station ID: [id number]
== END 2020-02-16 08:21 | disposition home or self-care (01) ==
LOC: DI 08:20
PROVIDERS: ATTEND Family Medicine
DX: Z08 Encounter for follow-up examination after completed treatment for malignant neoplasm (principal); D25.9 Leiomyoma of uterus, unspecified; E07.89 Other specified disorders of thyroid; Z85.3 Personal history of malignant neoplasm of breast; Z90.49 Acquired absence of other specified parts of digestive tract; Z90.12 Acquired absence of left breast and nipple
CPT/HCPCS: 71260; 74177; Q9967

== ENCOUNTER 2020-03-05 12:24 | Outpatient (CLI) | payer MEDICARE, OTHER ==
--- NOTE | 2020-03-05 16:52 | Ultrasound Report ---
PROCEDURE: Head or Neck Soft Tissue INDICATIONS: THYROID NODULE TECHNIQUE: Real-time scanning was performed of the thyroid gland, with image documentation. COMPARISON: None FINDINGS: Right: Thyroid lobe measures 4.2 x 2.1 x 1.6 cm, and is homogeneous in echotexture. Left: Thyroid lobe measures 5.3 x 2.7 x 2.1 cm, and is homogenous in echotexture. Isthmus: 3 mm thick. Nodule number: One Location: Right Size: 0.7 x 0.4 x 0.7 cm. Composition: Cystic Echogenicity: Anechoic Shape: wider than tall. Margins: Mildly irregular Echogenic foci: None Total points: 2 ACR TI-RADS category: 2 Nodule number: Two Location: Right Size: 1 x 1 x 1 cm. Composition: Solid Echogenicity: Hypoechoic Shape: wider than tall. Margins: Smooth Echogenic foci: None Total points: 3 ACR TI-RADS category: 3 Nodule number: Three Location: Right Size: 0.8 x 0.8 x 0.9 cm. Composition: Solid Echogenicity: Markedly hypoechoic Shape: wider than tall. Margins: Smooth Echogenic foci: Peripheral calcifications Total points: 7 ACR TI-RADS category: 5 Nodule number: Four Location: Left Size: 0.8 x 0.7 x 0.8 cm. Composition: Predominantly solid Echogenicity: Hypoechoic Shape: wider than tall. Margins: Smooth Echogenic foci: None Total points: 2 ACR TI-RADS category: 2 Nodule number: Five Location: Left Size: 0.7 x 0.6 x 0.7 cm. Composition: Predominantly solid Echogenicity: Hypoechoic Shape: wider than tall. Margins: Smooth Echogenic foci: None Total points: 2 ACR TI-RADS category: 2 Nodule number: Six Location: Left Size: 2.7 x 1.8 x 2.1 cm. Composition: Spongiform Echogenicity: Markedly hypoechoic Shape: wider than tall. Margins: Smooth Echogenic foci: None Total points: 3 ACR TI-RADS category: 3 IMPRESSION: Multiple thyroid nodules as described above. Thyroid FNA is recommended for the 2.7 cm n odule in the left thyroid (Nodule 6). Follow-up ultrasound is also recommended in one year. ACR TI-RADS definitions and recommendations: TI-RADS 1 (benign): 0 points. FNA not needed. TI-RADS 2 (not suspicious): 2 points. FNA not needed. TI-RADS 3 (mildly suspicious): 3 points. ? FNA if 2.5 cm or larger, follow up if 1.5 cm or larger (at 1, 3, and 5 years). TI-RADS 4 (moderately suspicious): 4-6 points. ? FNA if 1.5 cm or larger, follow up if 1 cm or larger (at 1, 2, 3, and 5 years). TI-RADS 5 (highly suspicious): 7 points or more. ? FNA if 1 cm or larger, follow up if 0.5 cm or larger (every year for 5 years). Reviewed by: Carlos Smalls MD on 03/05/2020 4:50 PM PDT Approved by: Carlos Smalls MD on 03/05/2020 4:50 PM PDT Station ID: [id number]
== END 2020-03-05 12:25 | disposition home or self-care (01) ==
LOC: DI 12:24
PROVIDERS: ATTEND Family Medicine
DX: E04.2 Nontoxic multinodular goiter (principal)
CPT/HCPCS: 76536

== ENCOUNTER 2020-03-26 15:20 | Outpatient (CLI) | payer MEDICARE, OTHER ==
[2020-03-26 18:50] LABS: BILIRUBIN,URINE NEGATIVE (NEGATIVE); GLUCOSE, URINE (UA) NEGATIVE (NEGATIVE); KETONES,URINE (UA) NEGATIVE (NEGATIVE); LEUKOCYTE ESTERASE, URINE SMALL (NEGATIVE); NITRITE,URINE NEGATIVE (NEGATIVE); OCCULT BLOOD,URINE NEGATIVE (NEGATIVE); PH,URINE 5.5 PH (5.0-7.5); PROTEIN,URINE NEGATIVE (NEGATIVE); UROBILINOGEN,URINE 0.2 (NORMAL) E.U./dL (NORMAL)
[2020-03-26 18:52] LABS: CLARITY,URINE CLEAR (CLEAR)
[2020-03-26 19:26] LABS: BACTERIA,URINE Rare /HPF (None Seen); CRYSTALS,URINE 11-25 Ca Oxalate /LPF; RBC,URINE 0-5 /HPF (0-5); SQUAMOUS EPITHELIAL CELL,UR FEW Squamous (<= Few)
== END 2020-03-26 23:59 | disposition home or self-care (01) ==
LOC: LAB.R 15:20
PROVIDERS: ATTEND Family Medicine
DX: R30.0 Dysuria (principal)
CPT/HCPCS: 81001; 81003; 87086

== ENCOUNTER 2020-03-27 11:05 | Outpatient (CLI) | payer MEDICARE, OTHER ==
[2020-03-27 11:27] LABS: BILIRUBIN,URINE NEGATIVE (NEGATIVE); GLUCOSE, URINE (UA) NEGATIVE (NEGATIVE); KETONES,URINE (UA) NEGATIVE (NEGATIVE); LEUKOCYTE ESTERASE, URINE SMALL (NEGATIVE); NITRITE,URINE NEGATIVE (NEGATIVE); OCCULT BLOOD,URINE TRACE-INTA (NEGATIVE); PH,URINE 5.5 PH (5.0-7.5); PROTEIN,URINE NEGATIVE (NEGATIVE); UROBILINOGEN,URINE 0.2 (NORMAL) E.U./dL (NORMAL)
[2020-03-27 11:34] LABS: CLARITY,URINE SL. CLOUDY (CLEAR)
[2020-03-27 11:47] LABS: BACTERIA,URINE Few /HPF (None Seen); RBC,URINE 0-5 /HPF (0-5); SQUAMOUS EPITHELIAL CELL,UR MOD Squamous (<= Few)
[2020-03-27 11:48] LABS: CRYSTALS,URINE 6-10 Calcium Oxalate /LPF
== END 2020-03-27 11:06 | disposition home or self-care (01) ==
LOC: LAB 11:05
PROVIDERS: ATTEND Family Medicine
DX: R30.0 Dysuria (principal)
CPT/HCPCS: 81001; 81003; 87086

== ENCOUNTER 2020-04-09 13:42 | Outpatient (CLI) | payer MEDICARE, OTHER ==
[2020-04-09] MEDS ORDERED: BUFFERED LIDOCAINE 10 ML SYRINGE ONE (14:06)
--- NOTE | 2020-04-09 15:49 | Ultrasound Report ---
PROCEDURE: FNA Bx w/US Gnd 1st les INDICATIONS: MULTIPLE THYROID NODULES TECHNIQUE: The indications, alternatives, benefits, risks, and complications of the procedure were explained to the patient. Written informed consent was obtained and placed in the chart. The area of interest wa s examined sonographically and a site was chosen for ultrasound guided percutaneous sampling. The sk in was prepared and draped in the usual fashion, and anesthetized with 1% lidocaine infiltrated from the skin down to the lesion. Multiple passes were then performed, with contents emptied into an appr [facility] pathology specimen container. A bandage was applied to the area of access at completion of t he study. COMPARISON: None. FINDINGS: Location(s) of lesion(s) sampled: Left inferior lobe [place]: 25 gauge hypodermic needles. Number of passes: 6 Medications: 1% lidocaine for local anaesthesia. Complications: None. IMPRESSION: Successful ultrasound-guided left inferior thyroid lobe fine needle aspiration, with cytology results pending. Reviewed by: Maia Foster MD on 04/09/2020 3:47 PM PDT Approved by: Maia Foster MD on 04/09/2020 3:47 PM PDT Station ID: [id number]
[2020-04-10] MEDS ORDERED: BUFFERED LIDOCAINE 10 ML SYRINGE IU ONE (16:53)
== END 2020-04-09 13:43 | disposition home or self-care (01) ==
LOC: DI 13:42
PROVIDERS: ATTEND Otolaryngology Facial Plastic Surgery
DX: E04.2 Nontoxic multinodular goiter (principal)
CPT/HCPCS: 10005

== ENCOUNTER 2020-08-24 13:41 | Outpatient (CLI) | payer MEDICARE, OTHER ==
--- NOTE | 2020-08-24 17:08 | Ultrasound Report ---
PROCEDURE: Pelvic w/Transvaginal INDICATIONS: POST MENOPAUSAL BLEEDING TECHNIQUE: Real-time scanning was performed of the pelvic organs, with image documentation. Additional endovagi nal scanning was necessary due to incomplete visualization of the adnexal and endometrial structures by transabdominal scanning. COMPARISON: Prior abdominal pelvic CT dated 02/24/2019, prior pelvic ultrasound dated 07/19/2018. FINDINGS: No pathologic free abdominal or pelvic fluid. Uterus: Uterus is enlarged in size at 9.2 x 5.2 x 6.7 cm. The endometrium measures 3.5 mm in combin ed thickness. Small amount of endometrial fluid present. Irregular echogenic focus also present withi n the endometrial complex measuring up to 13 mm. There are 3 intramural fibroid which are calcified, largest measuring 5.5 x 3.7 x 5.2 cm which appears similar to prior examination. Ovaries: Normal right ovary measuring 2.5 x 1.8 x 1.3 cm with volume estimated at 3.0 cc. The left o vary not visualized. IMPRESSION: 1. Enlarged leiomyomatous uterus with multiple fibroids again seen with the largest appearing similar in size and appearance from prior examination measuring up to 5.5 cm. 2. 13 mm echogenic focus within the central endometrial complex which may be related to retained bloo d products; however endometrial mass including a polyp or other neoplastic process cannot be excluded . Recommend follow-up examination in 4-6 weeks to assess for interval resolution and/or change. 3. Normal appearance of the right ovary and the left ovary is not visualized. Reviewed by: ESTELA Cortez on 08/24/2020 5:06 PM PST Approved by: Maia Foster MD on 08/24/2020 5:06 PM PST Station ID: [id number]
== END 2020-08-24 13:42 | disposition home or self-care (01) ==
LOC: DI 13:41
PROVIDERS: ATTEND Obstetrics & Gynecology
DX: N95.0 Postmenopausal bleeding (principal); D25.1 Intramural leiomyoma of uterus

== ENCOUNTER 2020-09-13 13:46 | Outpatient (CLI) | payer MEDICARE, OTHER ==
[2020-09-13 14:05] LABS: BASOPHILS % (AUTO) 0.3 %; EOSINOPHILS # (AUTO) 0.2 10^3/uL (0.0-0.7); EOSINOPHILS % (AUTO) 2.1 %; HCT - HEMATOCRIT 40.7 % (37.0-47.0); HGB - HEMOGLOBIN 13.3 g/dL (12.0-16.0); LYMPHOCYTES # (AUTO) 1.8 10^3/uL (1.5-3.5); MEAN CORPUSCULAR HGB CONC 32.7 g/dL (32.0-36.0); MEAN CORPUSCULAR VOLUME 94.9 fL (81.0-99.0); MEAN PLATELET VOLUME 8.9 fL (7.9-10.8); MONOCYTES # (AUTO) 0.5 10^3/uL (0.0-1.0); MONOCYTES % (AUTO) 6.8 %; NEUTROPHILS # (AUTO) 4.8 10^3/uL (1.5-6.6); NEUTROPHILS % (AUTO) 65.7 %; PLT - PLATELET COUNT 256 10^3/uL (130-450); RED BLOOD COUNT 4.29 10^6/uL (4.20-5.40); RED CELL DISTRIBUTION WIDTH 12.1 % (12.0-15.0); WHITE BLOOD COUNT 7.2 x10^3/uL (4.8-10.8)
[2020-09-13 14:33] LABS: ALBUMIN 4.7 g/dL (3.2-5.5); ALBUMIN/GLOBULIN RATIO 1.5 (1.0-2.2); ALKALINE PHOSPHATASE 100 IU/L (42-121); ALT ALANINE AMINOTRANSFERASE 13 IU/L (10-60); AST ASPARTATE AMINOTRANSFERASE 21 IU/L (10-42); BILIRUBIN,TOTAL 0.4 mg/dL (0.2-1.0); BUN - BLOOD UREA NITROGEN 19 mg/dL (6-20); CALCIUM 10.5 mg/dL (8.5-10.3); CARBON DIOXIDE - CO2 28 mmol/L (21-32); CHLORIDE 101 mmol/L (101-111); CHOL/HDL RATIO 2.6 (<4.4); CHOLESTEROL 172 mg/dL; CREATININE 0.9 mg/dL (0.4-1.0); GFR - MDRD 61 (>89); GLUCOSE 108 mg/dL (70-100); HDL CHOLESTEROL 67 mg/dL; LDL CHOLESTEROL,CALCULATED 79 mg/dL; LDL/HDL RATIO 1.2 (<4.4); POTASSIUM 3.8 mmol/L (3.5-5.0); SODIUM 139 mmol/L (135-145); TOTAL PROTEIN 7.8 g/dL (6.7-8.2); TRIGLYCERIDES 128 mg/dL; VLDL CHOLESTEROL 26 mg/dL
[2020-09-13 14:36] LABS: THYROID STIMULATING HORMONE 1.97 uIU/mL (0.34-5.60)
== END 2020-09-13 13:47 | disposition home or self-care (01) ==
LOC: LAB 13:46
PROVIDERS: ATTEND Family Medicine
DX: R42 Dizziness and giddiness (principal); E78.5 Hyperlipidemia, unspecified; E04.1 Nontoxic single thyroid nodule
CPT/HCPCS: 36415; 80053; 80061; 83721; 84443; 85025

== ENCOUNTER 2020-10-01 10:58 | Outpatient (CLI) | payer MEDICARE, OTHER ==
[2020-10-01 11:22] LABS: BASOPHILS % (AUTO) 0.7 %; EOSINOPHILS # (AUTO) 0.2 10^3/uL (0.0-0.7); EOSINOPHILS % (AUTO) 3.2 %; HCT - HEMATOCRIT 39.5 % (37.0-47.0); HGB - HEMOGLOBIN 12.9 g/dL (12.0-16.0); LYMPHOCYTES # (AUTO) 1.6 10^3/uL (1.5-3.5); LYMPHOCYTES % (AUTO) 28.3 %; MEAN CORPUSCULAR HEMOGLOBIN 31.2 pg (27.0-31.0); MEAN CORPUSCULAR HGB CONC 32.7 g/dL (32.0-36.0); MEAN CORPUSCULAR VOLUME 95.6 fL (81.0-99.0); MEAN PLATELET VOLUME 8.7 fL (7.9-10.8); MONOCYTES # (AUTO) 0.5 10^3/uL (0.0-1.0); MONOCYTES % (AUTO) 8.3 %; NEUTROPHILS # (AUTO) 3.4 10^3/uL (1.5-6.6); NEUTROPHILS % (AUTO) 59.3 %; PLT - PLATELET COUNT 220 10^3/uL (130-450); RED BLOOD COUNT 4.13 10^6/uL (4.20-5.40); RED CELL DISTRIBUTION WIDTH 12.2 % (12.0-15.0); WHITE BLOOD COUNT 5.7 x10^3/uL (4.8-10.8)
== END 2020-10-01 10:59 | disposition home or self-care (01) ==
LOC: LAB 10:58
PROVIDERS: ATTEND Obstetrics & Gynecology
DX: Z01.812 Encounter for preprocedural laboratory examination (principal); N95.0 Postmenopausal bleeding; Z20.822 Contact with and (suspected) exposure to COVID-19
CPT/HCPCS: 36415; 85025; U0004

== ENCOUNTER 2020-10-06 09:31 | Day surgery (SDC) | payer MEDICARE, OTHER ==
--- NOTE | 2020-10-06 07:06 | HISTORY & PHYSICAL EXAMINATION ---
HPI - History of Present Illness HPI Comment/Other: Patient is a 74 yo here for preop evaluation for hysteroscopy D&C to manage postmenopausal bleeding. Patient was last seen in clinic on 08/10/20. Presents with who provides partial history. Patient reported that she has "always" has vaginal bleeding. Has bleeding 2-3 times a day and this has been present for at least 3 years. It is not red or fresh blood she reports that it is "a mess". She had a pelvic ultrasound in 2019. After that she had been scheduled for hysteroscopy. Dr. Alamo was scheduled to perform the procedure and was called after delivery. He was left at the practice shortly after that and never followed up with the procedure. She was seen in 2019 and nothing was done. She was told to "live with it" per her . She is affected by multiple sclerosis diagnosed in 1981 she is also been treated for breast cancer in 2004 although she has not had chemotherapy or radiation. 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 She had taken medroxyprogesterone 2.[address] Alamo and it was discontinued February 25, 2020 by her PCP. No significant change in her bleeding after stopping the progesterone. Farzana completed a hysteroscopy in 2018. Benign pathology. Patient underwent a pelvic us on 09/13/20 which chowed the followin. Enlarged leiomyonnatous uterus with multiple fibroids again seen with the largest appearing similar in size and appearance from prior examination measuring up to 5.5 cm. 2. 13 mm echogenic focus within the central endometrial complex which may be related to retained blood products; however endometrial mass including a polyp or other neoplastic process cannot be excluded. Recommend follow-up examination in 4-6 weeks to assess for interval resolution and/or change. She presents today for preop assessment. Allergies: KETOROLAC TROMETHAMINE (Critical) * TORADOL (Critical) KETALAR (KETAMINE HCL SOLN) (Critical) * ZIO PATCH (Critical) Medications: DILTIAZEM HCL ER 120 MG ORAL CAPSULE EXTENDED RELEASE 24 TANG (DILTIAZEM HCL) Take one capsule by mouth once daily for high blood pressure; Route: ORAL TRIAMCINOLONE ACETONIDE 0.1 % EXTERNAL CREAM (TRIAMCINOLONE ACETONIDE) Apply sparingly to affected three times daily as needed for itching; Route: EXTERNAL CLOTRIMAZOLE 10 MG MOUTH/THROAT MENDY (CLOTRIMAZOLE) 1 mendy dissolved in mouth five times daily for 14 days; Route: MOUTH/THROAT FLUTICASONE PROPIONATE 50 MCG/ACT NASAL SUSPENSION (FLUTICASONE PROPIONATE) Use two sprays each nostril twice daily; Route: NASAL ATORVASTATIN CALCIUM 20 MG TABS (ATORVASTATIN CALCIUM) TAKE 1 TABLET BY MOUTH AT BEDTIME OMEPRAZOLE 20 MG ORAL CAPSULE DELAYED RELEASE (OMEPRAZOLE) Take one capsule by mouth once daily for indigestion; Route: ORAL * BRA WITH PROSTHESIS Dx: C50.919 AMBIEN 10 MG ORAL TABLET (ZOLPIDEM TARTRATE) Take one tablet by mouth at bedtime as needed for insomnia NORTRIPTYLINE HCL 50 MG ORAL CAPSULE (NORTRIPTYLINE HCL) Take one tablet by mouth daily SM GLUCOSAMINE HCL 1500 MG ORAL TABLET (GLUCOSAMINE HCL) Take one tablet by mouth every day ASPIRIN EC 81 MG ORAL TABLET DELAYED RELEASE (ASPIRIN) Take one tablet by mouth daily ZOLOFT 50 MG ORAL TABLET (SERTRALINE HCL) Take one tablet by mouth daily HYDROCHLOROTHIAZIDE 25 MG ORAL TABLET (HYDROCHLOROTHIAZIDE) Take one tablet by mouth every other day ATENOLOL 50MG TAB (ATENOLOL) TAKE 1 TABLET BY MOUTH ONCE DAILY * MULTIVITAMINS TABS (MULTIPLE VITAMIN) WITH MINERALS one tablet po daily * L BREAST PROSTHESIS ICD-9: 174.9 * MASTECTOMY BRAS Use as directed Dx 174.9 Problems: Preoperative examination (ICD-V72.84) (OCL16-M96.818) Tinnitus (ICD-388.30) (MNA20-F23.19) Hearing loss, bilateral (ICD-389.9) (RME00-T38.93) Dermatitis (ICD-692.9) (EDW47-N82.9) Postmenopausal bleeding (ICD-627.1) (TNQ31-E16.0) Trigger finger of left ring finger (ICD-727.03) (ADI35-G90.342) Dermatitis (ICD-692.9) (OCD54-M55.9) Overactive bladder (ICD-596.51) (GRO65-R44.81) Thyroid nodule (ICD-241.0) (YBL34-F97.1) Night sweats (ICD-780.8) (QAL89-F28) Arthritis, right knee (ICD-716.96) (QAX03-U23.861) Arthritis, left knee (ICD-716.96) (ZRM00-Q53.862) Sinus arrhythmia (ICD-427.9) (FMU53-W14.9) Carpal tunnel syndrome, bilateral (ICD-354.0) (FMM60-T30.01) Abnormal vaginal bleeding (ICD-626.9) (SYA39-Z35.9) Myxoid cyst (ICD-727.40) (FQJ93-F35.40) Tinea pedis (ICD-110.4) (SXU68-F69.3) Cholelithiasis (ICD-574.20) (VST93-K26.20) Constipation, chronic (ICD-564.09) (CSH01-E67.09) HYPERTENSION, BENIGN (ICD-401.1) (CAB57-A81) ALLERGIC RHINITIS, CAUSE UNSPECIFIED (ICD-477.9) (YPL87-O62.9) INSOMNIA, PERSISTENT DUE TO ANXIETY, DEPRESSION, ETC. 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) (IYC17-Z68.896) DEPRESSION (ICD-311) (CEX08-X52.9) HYPERLIPIDEMIA (ICD-272.4) (AVL54-R87.5) DIZZINESS, CHRONIC (ICD-780.4) (BUL26-Z42) COGNITIVE IMPAIRMENT, MILD, SO STATED (ICD-331.83) (QFZ54-R25.84) NEOPLASM, MALIGNANT, BREAST (ICD-174.9) (WVP72-A03.919) MULTIPLE SCLEROSIS (ICD-340) (HVV49-F67) LEG EDEMA, BILATERAL (ICD-782.3) (ICY05-N64.0) GERD (ICD-530.81) (MSC54-O40.9) Vital Signs: Patient Profile: 75 Years Old Female Height: 64 inches Weight: 191 pounds BMI: 32.90 BP sittin / 78 Cuff size: regular Vitals Entered By: REYNOLD Quintanilla (September 27, 2020 1:55 PM) Meds Reviewed: Done Allergies Reviewed: Done Past Medical History: Irregular Heartbeat Heart murmur HTN HLD acid reflux MS Multiple sclerosis is chronic progressive form. She is due for a reevaluation by her neurologist in the next 30 days. 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 Physical Constitutional: GEN: NAD HEAD: NCAT EYES: No scleral icterus or conjunctival injection NECK: No cervical LAD or TM CV: RRR RESP: CTAB, normal effort ABD: S&NT/ND PSYCH: appropriate affect. Impaired recall NEURO: alert and oriented, normal gait and coordination. Mild dementia EXT: WWP Impression & Recommendations: Problem # 1: Preoperative examination (ICD-V72.84) (HRJ76-L63.818) Reviewed risks/benefits/alternatives to hysteroscopy/polpectomy Risks include, but are not limited to, bleeding, infection, damage to neatby tissue and organs. On average, expected EBL is minimal. In the event of an unanticipated blood loss, patient is willing to undergo transfusion. Risks of blood transfusion include infection as well as transfusion reaction Risk of HIV 1/2million nationwide Risk of Hepatitis 1/1 million Risks of transfusion reaction and mgt reviewed Infection risk low given that no incisions lisandro be made and we will be using physiologic orifices. Will provide IV abx in the event of uterine perforation. Damage to nearby tissue and organs was reviewed with emphasis on uterine perforation and management, which can include surgical intervention based on bleeding risk. Reviewed management of complications and efforts to avoid such outcomes but revi ewed that they may occur despite our best efforts. Patient agreed to the aforementioned procedure and written informed consent was obtained. signed as a witness. Provided with misoprsotol for preoperative cervical preparation. Orders: PRE OP -[id number] ([id number]) Patient Portal: [id number] Gender ID Identifies as Female P: 2 T: 2 Pt: 0 A: 2 SAB: 2 L: 2 Ectopics: 0 Hx Multiple Births: 0 Height: 64 (09/13/2020 9:38:32 AM) Weight: 191 Last Mammo: Category 2 (04/09/2018 5:38:25 PM) Last Pap: Normal (04/08/2018 10:38:07 AM) Current Allergies: KETOROLAC TROMETHAMINE (Critical) * TORADOL (Critical) KETALAR (KETAMINE HCL SOLN) (Critical) * ZIO PATCH (Critical) Current Meds: DILTIAZEM HCL ER 120 MG ORAL CAPSULE EXTENDED RELEASE 24 TANG (DILTIAZEM HCL) Take one capsule by mouth once daily for high blood pressure; Route: ORAL TRIAMCINOLONE ACETONIDE 0.1 % EXTERNAL CREAM (TRIAMCINOLONE ACETONIDE) Apply sparingly to affected three times daily as needed for itching; Route: EXTERNAL CLOTRIMAZOLE 10 MG MOUTH/THROAT MENDY (CLOTRIMAZOLE) 1 mendy dissolved in mouth five times daily for 14 days; Route: MOUTH/THROAT FLUTICASONE PROPIONATE 50 MCG/ACT NASAL SUSPENSION (FLUTICASONE PROPIONATE) Use two sprays each nostril twice daily; Route: NASAL ATORVASTATIN CALCIUM 20 MG TABS (ATORVASTATIN CALCIUM) TAKE 1 TABLET BY MOUTH AT BEDTIME OMEPRAZOLE 20 MG ORAL CAPSULE DELAYED RELEASE (OMEPRAZOLE) Take one capsule by mouth once daily for indigestion; Route: ORAL * BRA WITH PROSTHESIS Dx: C50.919 AMBIEN 10 MG ORAL TABLET (ZOLPIDEM TARTRATE) Take one tablet by mouth at bedtime as needed for insomnia NORTRIPTYLINE HCL 50 MG ORAL CAPSULE (NORTRIPTYLINE HCL) Take one tablet by mouth daily SM GLUCOSAMINE HCL 1500 MG ORAL TABLET (GLUCOSAMINE HCL) Take one tablet by mouth every day ASPIRIN EC 81 MG ORAL TABLET DELAYED RELEASE (ASPIRIN) Take one tablet by mouth daily ZOLOFT 50 MG ORAL TABLET (SERTRALINE HCL) Take one tablet by mouth daily HYDROCHLOROTHIAZIDE 25 MG ORAL TABLET (HYDROCHLOROTHIAZIDE) Take one tablet by mouth every other day ATENOLOL 50MG TAB (ATENOLOL) TAKE 1 TABLET BY MOUTH ONCE DAILY * MULTIVITAMINS TABS (MULTIPLE VITAMIN) WITH MINERALS one tablet po daily * L BREAST PROSTHESIS ICD-9: 174.9 * MASTECTOMY BRAS Use as directed Dx 174.9 PMH/PSH - Past Medical History Cardiovascular: positive: Hypertension, High cholesterol, Murmur Respiratory: positive: None Endocrine/Autoimmune: positive: None GI: positive: Chronic constipation, Other : positive: Frequency, Kidney stones HEENT: positive: Other Psych: positive: Depression, Anxiety Musculoskeletal: positive: Fatigue, Chronic back pain, Other Derm: positive: Psoriasis MRSA Hx?: No - Past Surgical History General: positive: Cholecystectomy, Colonoscopy Ortho: positive: Spine surgery /LACE 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: positive: Mastectomy HEENT: positive: Tonsil/Adenoidectomy Meds/Allgy - Home Medications Home Medications: Ambulatory Orders Medication Instructions Recorded Confirmed Atorvastatin [Lipitor] 20 mg PO DAILY 08/03/15 10/01/20 Glucosam/Chondr-Msm6/Manganese 1 tab PO DAILY 08/03/15 10/01/20 [Glucosamine-Chondroitin Sftgl] Hydrochlorothiazide 25 mg PO DAILY 08/03/15 10/01/20 Multivit with Calcium,Iron,Min 1 tab PO DAILY 08/03/15 10/01/20 [Multiple Vitamins For Women] Nortriptyline [Pamelor] 50 mg PO DAILY 08/03/15 10/01/20 Sertraline [Zoloft] 50 mg PO DAILY 08/03/15 10/01/20 atenoloL [Atenolol] 50 mg PO DAILY 08/03/15 10/01/20 Omeprazole 20 mg PO DAILY PRN 10/01/20 10/01/20 dilTIAZem HCL [Diltiazem 24Hr ER 120 mg PO DAILY 10/01/20 10/01/20 (Xr)] - Allergies Allergies/Adverse Reactions: Allergies Allergy/AdvReac Type Severity Reaction Status Date / Time ketorolac tromethamine * AdvReac Hallucinati Verified 11/20/17 12:16 [From Toradol] ons
[~2020-10-06 09:31] MED LIST: ACETAMINOPHEN 1,000 MG/100 ML 100 ML IV ONE; CELECOXIB 100 MG CAPSULE PO ONE; GABAPENTIN 400 MG CAPSULE ONE
[2020-10-06] MEDS ORDERED: LACTATED RINGERS 1,000 ML IV ONE ×2 (09:33→12:52)
[2020-10-06] MEDS ORDERED: BUPIVACAINE 0.25% PF 30 ML VIAL ONE (10:22)
[2020-10-06] MEDS ORDERED: LIDOCAINE MPF 2%-EPI 1:200000 20 ML VIAL ONE (10:22)
--- NOTE | 2020-10-06 10:32 | ANESTHESIA ---
Pre-Anesthesia VS, & Labs - Diagnosis Post-menopausal bleeding - Procedure Myosure Hysteroscopy, D&C Vital Signs: Temp Pulse Resp BP Pulse Ox 36.1 C L 57 L 16 151/100 H 100 10/06/20 09:39 10/06/20 09:39 10/06/20 09:39 10/06/20 09:39 10/06/20 09:39 Height: 5 ft 4 in Weight (kg): 85 kg Body Mass Index: 32.1 BMI Classification: Obese - NPO >8 hours - Is Patient ?: No - Lab Results Lab results reviewed: Yes Home Medications and Allergies Home Medications: Ambulatory Orders Omeprazole 20 mg PO DAILY PRN 10/01/20 dilTIAZem HCL [Diltiazem 24Hr ER (Xr)] 120 mg PO DAILY 10/01/20 Atorvastatin [Lipitor] 20 mg PO DAILY 08/03/15 Glucosam/Chondr-Msm6/Manganese [Glucosamine-Chondroitin Sftgl] 1 tab PO DAILY 08/03/15 Hydrochlorothiazide 25 mg PO DAILY 08/03/15 Multivit with Calcium,Iron,Min [Multiple Vitamins For Women] 1 tab PO DAILY 08/03/15 Nortriptyline [Pamelor] 50 mg PO DAILY 08/03/15 Sertraline [Zoloft] 50 mg PO DAILY 08/03/15 atenoloL [Atenolol] 50 mg PO DAILY 08/03/15 Omeprazole 20 mg PO DAILY PRN 10/01/20 dilTIAZem HCL [Diltiazem 24Hr ER (Xr)] 120 mg PO DAILY 10/01/20 Allergies/Adverse Reactions: Allergies Allergy/AdvReac Type Severity Reaction Status Date / Time ketorolac tromethamine * AdvReac Hallucinati Verified 11/20/17 12:16 [From Toradol] ons Anes History & Medical History - Anesthetic History Anesthesia Complications: reports: No previous complications Family history of Anesthesia Complications: Denies Family history of Malignant Hyperthermia: Denies - Medical History Cardiovascular: reports: Hypertension, High cholesterol, Murmur Pulmonary: reports: None Gastrointestinal: reports: Chronic constipation, Other Urinary: reports: Frequency, Kidney stones Musculoskeletal: reports: Fatigue, Chronic back pain, Other Endocrine/Autoimmune: reports: None Skin: reports: Psoriasis - Surgical History General: reports: Cholecystectomy, Colonoscopy Eyes Ears Nose Throat (EENT): reports: Tonsil/Adenoidectomy Gynecologic: reports: Mastectomy Orthopedic: reports: Spine surgery Exam General: Alert, Oriented x3, Cooperative, No acute distress Dental: WNL Mouth Openin Fingerbreadth Neck Mobility: Normal Mallampati classification: II Respiratory: Lungs clear, Normal breath sounds, No respiratory distress, No accessory muscle use Cardiovascular: Regular rate, Normal S1, Normal S2, No murmurs Plan Anesthesia Type: General Consent for Procedure(s) Verified and Reviewed: Yes Code Status: Attempt Resuscitation ASA classification: 3-Severe systemic disease Is this case an emergency?: No
[2020-10-06] MEDS ORDERED: ONDANSETRON 4 MG/2 ML VIAL IVP PRN (10:33)
[2020-10-06] MEDS ORDERED: NALOXONE 0.4 MG/ML VIAL IVP PRN (10:33)
[2020-10-06] MEDS ORDERED: HYDROmorphone 0.5 MG/0.5 ML SYRINGE IVP PRN (10:33)
[2020-10-06] MEDS ORDERED: METOCLOPRAMIDE 10 MG/2 ML VIAL IVP PRN (10:33)
[2020-10-06] MEDS ORDERED: fentaNYL 100 MCG/2 ML VIAL IVP PRN (10:33)
[2020-10-06] MEDS ORDERED: ePHEDrine 50 MG/ML VIAL IVP PRN (10:33)
[2020-10-06] MEDS ORDERED: ATROPINE ABBOJECT 1 MG/10 ML SYRINGE IVP PRN (10:33)
[2020-10-06] MEDS ORDERED: MORPHINE 2 MG/ML CARPUJECT IVP PRN (10:33)
[2020-10-06] MEDS ORDERED: LIDOCAINE-MPF 2% 5 ML VIAL ONE (10:37)
[2020-10-06] MEDS ORDERED: DEXAMETHASONE 4 MG/ML VIAL ONE (10:37)
[2020-10-06] MEDS ORDERED: PROPOFOL 200 MG/20 ML VIAL IVP ONE (10:37)
[2020-10-06] MEDS ORDERED: SUGAMMADEX 200 MG/2 ML VIAL IVP ONE (10:37)
[2020-10-06] MEDS ORDERED: LACTATED RINGERS 1,000 ML IV SCH (11:00)
[2020-10-06] MEDS ORDERED: BUPIVACAINE 0.25% PF 30 ML VIAL SUBQ ONE (11:08)
[2020-10-06] MEDS ORDERED: LIDOCAINE 2%-EPI 1:100000 20 ML MDV SUBQ ONE (11:09)
[2020-10-06] MEDS ORDERED: VASOPRESSIN 20 UNIT/ML VIAL ONE (11:20)
[2020-10-06] MEDS ORDERED: LACTATED RINGERS IV ONE (11:47)
[2020-10-06] MEDS: HYDROmorphone 1 MG/ML CARPUJECT ONE ×2 (12:08→12:17)
--- NOTE | 2020-10-06 12:23 | OPERATIVE REPORT ---
Operative Report - General Planned Procedure: Hysteroscopy D&C and polypectomy Pre-Op Diagnosis: Postmenopausal bleeding Procedure Performed: Hysteroscopy D&C and polypectomy Post Op Diagnosis: Same and thickened endometrium - Procedure Note Primary Surgeon: Tricia Crawford MD Anesthesia Provider: Rufus Kulkarni CRNA Anesthesia Technique: General ET tube Pathology: Uterine contents IV Fluids (mL): 300 Estimated Blood Loss (mL): 25 Urine Output (mL): 140 Indications: Patient presents for hysteroscopy D&C for postmenopausal bleeding. Presents with who provides partial history. Patient reported that she has "always" has vaginal bleeding. Has bleeding 2-3 times a day and this has been present for at least 3 years. It is not red or fresh blood she reports that it is "a mess". She had a pelvic ultrasound in 2019. After that she had been scheduled for hysteroscopy. Dr. Alamo was scheduled to perform the procedure and was called after delivery. He was left at the practice shortly after that and never followed up with the procedure. She was seen in 2019 and nothing was done. She was told to "live with it" per her . She is affected by multiple sclerosis diagnosed in 1981 she is also been treated for breast cancer in 2004 although she has not had chemotherapy or radiation. 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 She had taken medroxyprogesterone [address] Alamo and it was discontinued February 25, 2020 by her PCP. No significant tapia e in her bleeding after stopping the progesterone. She had completed a hysteroscopy in 2018. Benign pathology. Has BRB this am. Patient underwent a pelvic us on 09/13/20 which showed the followin. Enlarged leiomyonnatous uterus with multiple fibroids again seen with the largest appearing similar in size and appearance from prior examination measuring up to 5.5 cm. 2. 13 mm echogenic focus within the central endometrial complex which may be related to retained blood products; however endometrial mass including a polyp or other neoplastic process cannot be excluded. Recommend follow-up examination in 4-6 weeks to assess for interval resolution and/or change. Findings: Area of thickened tissue in the postero-fundal area near tubal ostia. Bilateral tubal ostia noted. Endometrial lining smooth but peeled away from myometrium with a definite tissue plane. Area was sampled. Complications: None - Other Other Information/Narrative: Risks benefits and alternatives to the procedure were reviewed. Consent was again confirmed. Patient was taken to the operating room where she underwent general anesthesia. She was positioned in dorsolithotomy position with legs resting in yellowfin stirrups. She was prepped and draped in the usual sterile fashion. Preoperative antibiotics were not indicated. Preoperative checklist was performed. Exam under anesthesia was performed. Speculum was placed in the vagina and the cervix was visualized. Single-tooth tenaculum was placed at the anterior cervical lip. Paracervical block was administered using a total of 20 cc of 1% lidocaine with epinephrine was injected at the 4:00 and 8:00 positions lateral to the portio of the cervix. The cervical os was serially dilated with Hegar dilators to accommodate the caliber of the diagnostic hysteroscope. The hysteroscope was inserted and findings were noted as above. The hysteroscopic morcellator was inserted through the operative port. The intrauterine polyp were morcellated under direct visualization. Partial D&C was performed under direct observation. Hysteroscope was removed. Sharp curettage D&C was performed with sharp curettage. All instruments were removed from the uterus. Tenaculum was removed. Tenaculum sites were noted to be hemostatic. All instruments were removed from the vagina. Procedure was well-tolerated without complication. Fluid deficit: 440 cc
[2020-10-06 12:30] LABS: BASOPHILS % (AUTO) 0.3 %; EOSINOPHILS # (AUTO) 0.1 10^3/uL (0.0-0.7); EOSINOPHILS % (AUTO) 1.1 %; HCT - HEMATOCRIT 39.9 % (37.0-47.0); HGB - HEMOGLOBIN 12.5 g/dL (12.0-16.0); LYMPHOCYTES # (AUTO) 1.2 10^3/uL (1.5-3.5); MEAN CORPUSCULAR HEMOGLOBIN 30.7 pg (27.0-31.0); MEAN CORPUSCULAR HGB CONC 31.3 g/dL (32.0-36.0); MEAN PLATELET VOLUME 9.5 fL (7.9-10.8); MONOCYTES # (AUTO) 0.3 10^3/uL (0.0-1.0); MONOCYTES % (AUTO) 3.5 %; NEUTROPHILS # (AUTO) 7.5 10^3/uL (1.5-6.6); NEUTROPHILS % (AUTO) 81.9 %; PLT - PLATELET COUNT 197 10^3/uL (130-450); RED BLOOD COUNT 4.07 10^6/uL (4.20-5.40); WHITE BLOOD COUNT 9.1 x10^3/uL (4.8-10.8)
[2020-10-06] MEDS ORDERED: fentaNYL 100 MCG/2 ML VIAL ONE (12:36)
[2020-10-06] MEDS ORDERED: GI COCKTAIL 120 ML BOTTLE PO PRN (12:53)
[2020-10-06] MEDS ORDERED: LORazepam 2 MG/ML VIAL ONE (12:56)
[2020-10-06] MEDS ORDERED: LORazepam 2 MG/ML VIAL IVP SCH (13:00)
[2020-10-06 14:30] VITALS: BP 125/63
--- NOTE | 2020-10-06 15:05 | ANESTHESIA POST OP EVALUATION ---
Anesthesia Post Eval - Post Anesthesia Eval Vitals: Last Vital Signs Temp 36.7 C 10/06/20 14:29 Pulse 63 10/06/20 14:29 Resp 16 10/06/20 14:29 BP 125/63 10/06/20 14:29 Pulse Ox 96 10/06/20 14:29 CV Function Including HR & BP: Stable Pain Control: Satisfactory Nausea & Vomiting: Negative Mental Status: Baseline Respiratory Status: Airway Patent Hydration Status: Satisfactory Anesthesia Complications: None
== END 2020-10-06 09:32 | disposition home or self-care (01) ==
LOC: SDS 09:31
PROVIDERS: ATTEND Obstetrics & Gynecology
PROC: 0UB98ZZ Excision of Uterus, Via Natural or Artificial Opening Endoscopic (ICD-10-PCS; principal; 2020-10-06 10:30)
DX: N84.0 Polyp of corpus uteri (principal); D25.9 Leiomyoma of uterus, unspecified; G35 Multiple sclerosis; I10 Essential (primary) hypertension; I49.9 Cardiac arrhythmia, unspecified; E78.5 Hyperlipidemia, unspecified; K21.9 Gastro-esophageal reflux disease without esophagitis; F03.90 Unspecified dementia, unspecified severity, without behavioral disturbance, psychotic disturbance, mood disturbance, and anxiety; F51.05 Insomnia due to other mental disorder; F32.9 Major depressive disorder, single episode, unspecified; F41.0 Panic disorder [episodic paroxysmal anxiety]; K59.09 Other constipation; L40.9 Psoriasis, unspecified; G89.29 Other chronic pain; M54.9 Dorsalgia, unspecified; Z98.1 Arthrodesis status; Z79.899 Other long term (current) drug therapy; H91.90 Unspecified hearing loss, unspecified ear; Z79.82 Long term (current) use of aspirin; Z85.3 Personal history of malignant neoplasm of breast; Z90.12 Acquired absence of left breast and nipple; E66.9 Obesity, unspecified; Z68.32 Body mass index [BMI] 32.0-32.9, adult
CPT/HCPCS: 36415; 58558; 85025; J0131; J1170; J2060; J7120

== ENCOUNTER → 2020-12-03 | Outpatient (CLI) | payer MEDICARE, OTHER ==
--- NOTE | 2020-12-04 01:09 | XRAY Report ---
PROCEDURE: Neck Soft Tissue INDICATIONS: DYSPHAGIA TECHNIQUE: 2 views of the neck were acquired. COMPARISON: None. FINDINGS: Airway: The airway appears patent. Soft tissues: Prevertebral soft tissues are normal in thickness. The epiglottis and aryepiglottic f olds appear normal. No soft tissue gas. Artifact project over the patient's face secondary to weari ng a face mask. Bones: No suspicious bony lesions. Visualized cervical spine is normally aligned. Advanced spondyl itic changes of the cervical spine with disc space narrowing, endplate changes and prominent endplate osteophyte formation. Findings are most pronounced from C3-4 through C6-7. No acute compression frac tures. IMPRESSION: No soft tissue abnormalities identified in the neck. Moderate-severe multilevel cervical spondylosis most pronounced from C3-4 through C6-7. Reviewed by: Marques Mcneil MD on 12/04/2020 1:08 AM PDT Approved by: Marques Mcneil MD on 12/04/2020 1:08 AM PDT Station ID: [id number]
== END ==
LOC: DI.N 16:53
PROVIDERS: ATTEND Nurse Practitioner
DX: R13.10 Dysphagia, unspecified (principal); M47.812 Spondylosis without myelopathy or radiculopathy, cervical region

== ENCOUNTER 2021-03-15 12:38 | Outpatient (CLI) | payer MEDICARE, OTHER ==
[2021-03-15 12:59] LABS: BASOPHILS % (AUTO) 0.4 %; EOSINOPHILS # (AUTO) 0.2 10^3/uL (0.0-0.7); EOSINOPHILS % (AUTO) 4.4 %; HCT - HEMATOCRIT 38.2 % (37.0-47.0); HGB - HEMOGLOBIN 12.3 g/dL (12.0-16.0); LYMPHOCYTES # (AUTO) 1.1 10^3/uL (1.5-3.5); LYMPHOCYTES % (AUTO) 21.1 %; MEAN CORPUSCULAR HEMOGLOBIN 30.7 pg (27.0-31.0); MEAN CORPUSCULAR HGB CONC 32.2 g/dL (32.0-36.0); MEAN CORPUSCULAR VOLUME 95.3 fL (81.0-99.0); MEAN PLATELET VOLUME 8.8 fL (7.9-10.8); MONOCYTES # (AUTO) 0.4 10^3/uL (0.0-1.0); MONOCYTES % (AUTO) 7.8 %; NEUTROPHILS # (AUTO) 3.5 10^3/uL (1.5-6.6); NEUTROPHILS % (AUTO) 65.9 %; PLT - PLATELET COUNT 198 10^3/uL (130-450); RED BLOOD COUNT 4.01 10^6/uL (4.20-5.40); RED CELL DISTRIBUTION WIDTH 12.3 % (12.0-15.0); WHITE BLOOD COUNT 5.3 x10^3/uL (4.8-10.8)
[2021-03-15 13:09] LABS: ALBUMIN 4.3 g/dL (3.2-5.5); ALBUMIN/GLOBULIN RATIO 1.3 (1.0-2.2); BILIRUBIN,TOTAL 0.7 mg/dL (0.2-1.0); CREATININE 1.1 mg/dL (0.4-1.0); POTASSIUM 3.7 mmol/L (3.5-5.0); TOTAL PROTEIN 7.5 g/dL (6.7-8.2)
--- NOTE | 2021-03-15 17:02 | XRAY Report ---
PROCEDURE: Knee 4 View BILAT INDICATIONS: BILAT PRIM OSTEOARTHRITIS OF KNEE TECHNIQUE: 4 views of the right and left knee(s) were acquired. COMPARISON: None. FINDINGS: Bones: No fractures or dislocations. No suspicious bony lesions. Moderate to severe bilateral knee lateral compartment osteophytosis. Mild to moderate bilateral knee medial and patellofemoral compartm ent osteoarthritis. Soft tissues: No joint effusion. No suspicious soft tissue calcifications. IMPRESSION: Bilateral knee tricompartmental osteoarthritis as described above. Reviewed by: Jyotsna Kong MD, PhD on 03/15/2021 5:01 PM PDT Approved by: Jyotsna Kong MD, PhD on 03/15/2021 5:01 PM PDT Station ID: [id number]
[2021-03-17 12:00] LABS: ALBUMIN 4.1 g/dL (3.8-4.8); ALPHA 1 GLOBULIN 0.4 g/dL (0.2-0.3); ALPHA 2 GLOBULIN 0.8 g/dL (0.5-0.9); BETA 1 GLOBULIN 0.5 g/dL (0.4-0.6); BETA 2 GLOBULIN 0.4 g/dL (0.2-0.5); GAMMA GLOBULIN 0.7 g/dL (0.8-1.7)
== END 2021-03-15 12:39 | disposition home or self-care (01) ==
LOC: LAB 12:38 → DI 12:39
PROVIDERS: ATTEND Family Medicine
DX: M17.0 Bilateral primary osteoarthritis of knee (principal); E83.52 Hypercalcemia
CPT/HCPCS: 36415; 80053; 82306; 83970; 84155; 84165; 85025

== ENCOUNTER 2021-03-29 10:31 | Outpatient (CLI) | payer MEDICARE, OTHER ==
--- NOTE | 2021-03-30 10:11 | Mammography Report ---
UNILATERAL RIGHT DIGITAL SCREENING MAMMOGRAM 3D/2D: 03/29/2021 CLINICAL: Routine screening. Personal history of left breast cancer. Comparison is made to exams dated: 04/09/2018 mammogram, 10/01/2017 mammogram, 03/05/2017 mammogram, mammogram, 02/16/2016 ultrasound, and 02/08/2016 mammogram - [facility]. Th e tissue of right breast is predominantly fatty. There are benign calcifications in the right breast. No significant masses, calcifications, or other findings are seen in the breast. There has been no significant interval change. IMPRESSION: BENIGN There is no mammographic evidence of malignancy. A 1 year screening mammogram is recommended. This exam was interpreted at Station ID: [id number]. NOTE: For mammograms, a report in lay terms will be sent to the patient. Approximately 15% of breast malignancies will not be visualized mammographically. In the management of a palpable breast mass, a negative mammogram must not discourage biopsy of a clinically suspicious lesion. Electronically Signed By: Shaquille Salas acr/penrad:03/29/2021 11:08:07 ACR BI-RADS Category 2: Benign Finding(s) 3342F PARENCHYMAL PATTERN: (F) - The breast(s) demonstrate(s) diffuse fatty replacement. BI-RADS CATEGORY: (2) - 2 RECOMMENDATION: (ANNUAL) - Recommend routine annual screening mammography. [id number] 1 year screening LATERALITY: (B)
== END 2021-03-29 10:32 | disposition home or self-care (01) ==
LOC: DI 10:31
DX: Z12.31 Encounter for screening mammogram for malignant neoplasm of breast (principal); Z08 Encounter for follow-up examination after completed treatment for malignant neoplasm; Z85.3 Personal history of malignant neoplasm of breast

== ENCOUNTER 2021-12-20 09:29 | Outpatient (CLI) | payer MEDICARE, OTHER ==
--- NOTE | 2021-12-20 17:30 | XRAY Report ---
PROCEDURE: Knee 4 View BILAT INDICATIONS: BILAT KNEE PX TECHNIQUE: 4 views of the right and left knee(s) were acquired. COMPARISON: None. FINDINGS: Bones: No fractures or dislocations. No suspicious bony lesions. Severe bilateral knee medial renetta rtment osteoarthritis. Moderate bilateral knee lateral and patellofemoral compartment osteophytes. Soft tissues: No joint effusion. No suspicious soft tissue calcifications. IMPRESSION: Bilateral knee tricompartmental osteoarthritis as described above. Reviewed by: Jyotsna Kong MD, PhD on 12/20/2021 5:29 PM PDT Approved by: Jyotsna Kong MD, PhD on 12/20/2021 5:29 PM PDT Station ID: [id number]
== END 2021-12-20 23:59 | disposition home or self-care (01) ==
LOC: DI.WOS 09:29
PROVIDERS: ATTEND Physician Assistant Surgical
DX: M17.0 Bilateral primary osteoarthritis of knee (principal)

== ENCOUNTER 2022-01-31 10:42 | Outpatient (CLI) | payer MEDICARE, OTHER ==
[2022-01-31 11:03] LABS: BASOPHILS % (AUTO) 0.3 %; EOSINOPHILS # (AUTO) 0.1 10^3/uL (0.0-0.7); EOSINOPHILS % (AUTO) 1.4 %; HCT - HEMATOCRIT 38.7 % (37.0-47.0); LYMPHOCYTES # (AUTO) 1.5 10^3/uL (1.5-3.5); LYMPHOCYTES % (AUTO) 22.5 %; MEAN CORPUSCULAR HEMOGLOBIN 31.7 pg (27.0-31.0); MEAN CORPUSCULAR HGB CONC 33.6 g/dL (32.0-36.0); MEAN CORPUSCULAR VOLUME 94.4 fL (81.0-99.0); MEAN PLATELET VOLUME 8.6 fL (7.9-10.8); MONOCYTES # (AUTO) 0.4 10^3/uL (0.0-1.0); MONOCYTES % (AUTO) 6.3 %; NEUTROPHILS # (AUTO) 4.5 10^3/uL (1.5-6.6); PLT - PLATELET COUNT 221 10^3/uL (130-450); RED CELL DISTRIBUTION WIDTH 12.7 % (12.0-15.0); WHITE BLOOD COUNT 6.5 x10^3/uL (4.8-10.8)
[2022-01-31 11:10] LABS: CALCIUM, IONIZED 1.22 mmol/L (1.15-1.33); VBG PH 7.381 (7.31-7.41)
[2022-01-31 11:24] LABS: ALBUMIN 4.3 g/dL (3.2-5.5); ALBUMIN/GLOBULIN RATIO 1.4 (1.0-2.2); ALKALINE PHOSPHATASE 83 IU/L (42-121); ALT ALANINE AMINOTRANSFERASE 13 IU/L (10-60); AST ASPARTATE AMINOTRANSFERASE 20 IU/L (10-42); BILIRUBIN,TOTAL 0.6 mg/dL (0.2-1.0); BUN - BLOOD UREA NITROGEN 18 mg/dL (6-20); CALCIUM 10.1 mg/dL (8.5-10.3); CARBON DIOXIDE - CO2 27 mmol/L (21-32); CHLORIDE 105 mmol/L (101-111); CHOL/HDL RATIO 2.2 (<4.4); CHOLESTEROL 169 mg/dL; CREATININE 0.8 mg/dL (0.4-1.0); GFR - MDRD 69 (>89); GLUCOSE 105 mg/dL (70-100); HDL CHOLESTEROL 77 mg/dL; LDL CHOLESTEROL,CALCULATED 79 mg/dL; SODIUM 141 mmol/L (135-145); TOTAL PROTEIN 7.3 g/dL (6.7-8.2); TRIGLYCERIDES 66 mg/dL; VLDL CHOLESTEROL 13 mg/dL
[2022-01-31 11:33] LABS: THYROID STIMULATING HORMONE 1.22 uIU/mL (0.34-5.60)
== END 2022-01-31 10:43 | disposition home or self-care (01) ==
LOC: LAB 10:42
PROVIDERS: ATTEND Family Medicine
DX: I10 Essential (primary) hypertension (principal); R73.9 Hyperglycemia, unspecified; M17.11 Unilateral primary osteoarthritis, right knee; E83.52 Hypercalcemia; F03.90 Unspecified dementia, unspecified severity, without behavioral disturbance, psychotic disturbance, mood disturbance, and anxiety; F32.A Depression, unspecified; E78.5 Hyperlipidemia, unspecified; G35 Multiple sclerosis; K21.9 Gastro-esophageal reflux disease without esophagitis
CPT/HCPCS: 36415; 80053; 80061; 81599; 82330; 83721; 84443; 85025

== ENCOUNTER 2022-09-08 09:24 | Outpatient (CLI) | payer MEDICARE, OTHER ==
--- NOTE | 2022-09-08 11:03 | XRAY Report ---
PROCEDURE: Chest 2 View X-Ray INDICATIONS: ACUTE COUGH TECHNIQUE: 2 views of the chest were acquired. COMPARISON: None FINDINGS: Surgical changes and devices: Postsurgical changes of lower lumbar fusion and lumbar laminectomy. Num erous surgical clips project over the left abdomen.. Lungs and pleura: No pleural effusions or pneumothorax. Lungs are clear. Mediastinum: Mediastinal contours are normal. Heart size is normal. Bones and chest wall: No suspicious bony abnormalities. Soft tissues appear unremarkable. Oval den sity projects over the left mid abdomen which may represent a renal stone versus ingested material. IMPRESSION: Chest without acute cardiopulmonary abnormalities. Reviewed by: Marques Mcneil MD on 09/08/2022 11:02 AM PDT Approved by: Marques Mcneil MD on 09/08/2022 11:02 AM PDT Station ID: [id number]
== END 2022-09-08 09:25 | disposition home or self-care (01) ==
LOC: DI 09:24
PROVIDERS: ATTEND Registered Nurse
DX: R05.1 Acute cough (principal)

== ENCOUNTER 2022-10-06 09:55 | Outpatient (CLI) | payer MEDICARE, OTHER ==
--- NOTE | 2022-10-06 11:37 | XRAY Report ---
PROCEDURE: Chest 2 View X-Ray INDICATIONS: ACUTE COUGH TECHNIQUE: 2 views of the chest were acquired. COMPARISON: CXR 09/08/2022. FINDINGS: Surgical changes and devices: Lumbar spine pedicle screw fixation. Multiple clips in the upper abdom en.. Lungs and pleura: No pleural effusions or pneumothorax. Lungs are clear. Mediastinum: Mediastinal contours appear normal. Heart size is normal. Bones and chest wall: No suspicious bony lesions. Overlying soft tissues appear unremarkable. IMPRESSION: No acute cardiopulmonary abnormality. Reviewed by: Chang Gillette MD on 10/06/2022 11:35 AM PDT Approved by: Chang Gillette MD on 10/06/2022 11:35 AM PDT Station ID: [id number]
== END 2022-10-06 09:56 | disposition home or self-care (01) ==
LOC: DI 09:55
PROVIDERS: ATTEND Family Medicine
DX: R05.1 Acute cough (principal)

== ENCOUNTER 2023-02-06 09:47 | Outpatient (CLI) | payer MEDICARE, OTHER ==
[2023-02-06 09:59] LABS: BASOPHILS % (AUTO) 0.5 %; EOSINOPHILS # (AUTO) 0.2 10^3/uL (0.0-0.7); EOSINOPHILS % (AUTO) 2.4 %; HCT - HEMATOCRIT 39.9 % (37.0-47.0); HGB - HEMOGLOBIN 12.9 g/dL (12.0-16.0); LYMPHOCYTES # (AUTO) 1.8 10^3/uL (1.5-3.5); LYMPHOCYTES % (AUTO) 27.7 %; MEAN CORPUSCULAR HEMOGLOBIN 30.4 pg (27.0-31.0); MEAN CORPUSCULAR HGB CONC 32.3 g/dL (32.0-36.0); MEAN CORPUSCULAR VOLUME 94.1 fL (81.0-99.0); MEAN PLATELET VOLUME 8.8 fL (7.9-10.8); MONOCYTES # (AUTO) 0.5 10^3/uL (0.0-1.0); MONOCYTES % (AUTO) 7.1 %; PLT - PLATELET COUNT 235 10^3/uL (130-450); RED BLOOD COUNT 4.24 10^6/uL (4.20-5.40); WHITE BLOOD COUNT 6.4 x10^3/uL (4.8-10.8)
[2023-02-06 10:17] LABS: ALBUMIN 4.5 g/dL (3.2-5.5); ALBUMIN/GLOBULIN RATIO 1.7 (1.0-2.2); BILIRUBIN,TOTAL 0.4 mg/dL (0.2-1.0); CALCIUM 10.7 mg/dL (8.5-10.3); CREATININE 0.9 mg/dL (0.6-1.3); POTASSIUM 4.1 mmol/L (3.5-4.5); TOTAL PROTEIN 7.2 g/dL (6.4-8.9)
[2023-02-06 13:17] LABS: ESTIMATED AVERAGE GLUCOSE 114 mg/dL (70-100); HEMOGLOBIN A1c% 5.6 % (4.27-6.07)
== END 2023-02-06 09:48 | disposition home or self-care (01) ==
LOC: LAB 09:47
PROVIDERS: ATTEND Family Medicine
DX: M17.0 Bilateral primary osteoarthritis of knee (principal); E66.9 Obesity, unspecified; I49.9 Cardiac arrhythmia, unspecified; F02.80 Dementia in other diseases classified elsewhere, unspecified severity, without behavioral disturbance, psychotic disturbance, mood disturbance, and anxiety; M48.061 Spinal stenosis, lumbar region without neurogenic claudication; R73.9 Hyperglycemia, unspecified; G35 Multiple sclerosis
CPT/HCPCS: 36415; 80053; 83036; 84443; 85025

== ENCOUNTER 2023-03-30 08:20 | Outpatient (CLI) | payer MEDICARE, OTHER ==
--- NOTE | 2023-03-30 15:19 | Mammography Report ---
UNILATERAL RIGHT DIGITAL DIAGNOSTIC MAMMOGRAM 3D/2D: 03/30/2023 CLINICAL: Focal right breast pain. Personal history of left breast cancer. Comparison is made to exams dated: 07/06/2022 mammogram, 03/29/2021 mammogram - [facility], 04/09/2018 mammogram, 10/01/2017 mammogram, 03/05/2017 mammogram, and 08/08/2016 mammogram - [facility]. There are scattered areas of fibroglandular density in the right breast (category b / 25%-50% glandul ar tissue). No significant masses, calcifications, or other findings are seen in the breast. IMPRESSION: INCOMPLETE: NEEDS ADDITIONAL IMAGING EVALUATION There is no mammographic abnormality seen in the right breast to correspond with the pain, however, t argeted ultrasound of the right breast is recommended and will be performed immediately following thi s exam. This exam was interpreted at Station ID: [id number]. NOTE: For mammograms, a report in lay terms will be sent to the patient. Approximately 15% of breast malignancies will not be visualized mammographically. In the management of a palpable breast mass, a negative mammogram must not discourage biopsy of a clinically suspicious lesion. Electronically Signed By: Ayanna Macias M.D. lk/:03/30/2023 08:49:55 ACR BI-RADS Category 0: Incomplete 3340F PARENCHYMAL PATTERN: (A) - The breast(s) demonstrate(s) scattered fibroglandular densities. BI-RADS CATEGORY: (0) - 0 Ultrasound [id number] Immediate follow-up LATERALITY: (B)
--- NOTE | 2023-03-30 15:19 | Ultrasound Report ---
LIMITED ULTRASOUND OF RIGHT BREAST: 03/30/2023 CLINICAL: Occasional right breast pain. Comparison is made to exams dated: 03/30/2023 mammogram, 07/06/2022 mammogram, 03/29/2021 mammogram - [facility], 04/09/2018 mammogram, 10/01/2017 mammogram, and 03/05/2017 mammogram - [facility]. Real-time ultrasound of the right breast 4 o'clock region was performed on the areas of interest. Gr ay scale images of the real-time examination were reviewed. IMPRESSION: NEGATIVE There is no sonographic evidence of malignancy. There is no mammographic or sonographic abnormality seen in the right breast to correspond with the p ain, however, clinical followup is recommended. A 1 year screening mammogram is recommended. Future imaging is recommended as follows: 07/07/2023 sc reening mammogram. This exam was interpreted at Station ID: [id number]. Electronically Signed By: Ayanna Macias M.D. lk/:03/30/2023 09:04:22 Ultrasound BI-RADS: 1 Negative BI-RADS CATEGORY: (1) - 1 Mammogram [id number] 1 year screening LATERALITY: (B)
== END 2023-03-30 08:21 | disposition home or self-care (01) ==
LOC: DI 08:20
PROVIDERS: ATTEND Physician Assistant
DX: N64.4 Mastodynia (principal); R92.321 Mammographic fibroglandular density, right breast

== ENCOUNTER 2024-01-08 07:16 | Outpatient (CLI) | payer MEDICARE, OTHER ==
[2024-01-08 07:37] LABS: BASOPHILS % (AUTO) 0.3 %; EOSINOPHILS # (AUTO) 0.3 10^3/uL (0.0-0.7); EOSINOPHILS % (AUTO) 3.1 %; HCT - HEMATOCRIT 38.7 % (37.0-47.0); HGB - HEMOGLOBIN 12.7 g/dL (12.0-16.0); LYMPHOCYTES # (AUTO) 2.4 10^3/uL (1.5-3.5); LYMPHOCYTES % (AUTO) 26.9 %; MEAN CORPUSCULAR HEMOGLOBIN 31.4 pg (27.0-31.0); MEAN CORPUSCULAR HGB CONC 32.8 g/dL (32.0-36.0); MEAN CORPUSCULAR VOLUME 95.6 fL (81.0-99.0); MEAN PLATELET VOLUME 8.9 fL (7.9-10.8); MONOCYTES # (AUTO) 0.5 10^3/uL (0.0-1.0); MONOCYTES % (AUTO) 5.8 %; NEUTROPHILS # (AUTO) 5.6 10^3/uL (1.5-6.6); NEUTROPHILS % (AUTO) 63.3 %; PLT - PLATELET COUNT 257 10^3/uL (130-450); RED BLOOD COUNT 4.05 10^6/uL (4.20-5.40); RED CELL DISTRIBUTION WIDTH 12.2 % (12.0-15.0); WHITE BLOOD COUNT 8.9 x10^3/uL (4.8-10.8)
[2024-01-08 07:54] LABS: ALBUMIN 4.8 g/dL (3.2-5.5); ALBUMIN/GLOBULIN RATIO 1.8 (1.0-2.2); ALKALINE PHOSPHATASE 96 IU/L (42-121); ALT ALANINE AMINOTRANSFERASE 10 IU/L (10-60); AST ASPARTATE AMINOTRANSFERASE 16 IU/L (10-42); BILIRUBIN,TOTAL 0.5 mg/dL (0.2-1.0); BUN - BLOOD UREA NITROGEN 19 mg/dL (6-20); CALCIUM 10.7 mg/dL (8.5-10.3); CARBON DIOXIDE - CO2 32 mmol/L (21-32); CHLORIDE 103 mmol/L (101-111); CHOL/HDL RATIO 2.2 (<4.4); CHOLESTEROL 169 mg/dL; CREATININE 0.9 mg/dL (0.6-1.3); GFR - MDRD 60 (>89); GLUCOSE 114 mg/dL (74-104); HDL CHOLESTEROL 78 mg/dL; LDL CHOLESTEROL,CALCULATED 71 mg/dL; LDL/HDL RATIO 0.9 (<4.4); SODIUM 141 mmol/L (135-145); TOTAL PROTEIN 7.5 g/dL (6.4-8.9); TRIGLYCERIDES 98 mg/dL; VLDL CHOLESTEROL 20 mg/dL
[2024-01-08 08:10] LABS: THYROID STIMULATING HORMONE 2.75 uIU/mL (0.34-5.60)
[2024-01-08 10:00] LABS: ESTIMATED AVERAGE GLUCOSE 111 mg/dL (70-100); HEMOGLOBIN A1c% 5.5 % (4.27-6.07)
== END 2024-01-08 07:17 | disposition home or self-care (01) ==
LOC: LAB 07:16
PROVIDERS: ATTEND Family Medicine
DX: I10 Essential (primary) hypertension (principal); E66.9 Obesity, unspecified; G35 Multiple sclerosis; F02.80 Dementia in other diseases classified elsewhere, unspecified severity, without behavioral disturbance, psychotic disturbance, mood disturbance, and anxiety; M48.061 Spinal stenosis, lumbar region without neurogenic claudication; R73.9 Hyperglycemia, unspecified; E83.52 Hypercalcemia; K21.9 Gastro-esophageal reflux disease without esophagitis
CPT/HCPCS: 36415; 80053; 80061; 83036; 83721; 84443; 85025